=== PATIENT | female | born 1930 | race Caucasian/White ===

== ENCOUNTER 2016-10-14 00:53 | Inpatient (IN) | payer MEDICARE ==
[2016-10-14] MEDS ORDERED: SODIUM CHLORIDE 0.9% 1,000 ML IV STA (01:23)
[2016-10-14] MEDS ORDERED: ONDANSETRON 4 MG/2 ML VIAL IVP STA (01:23)
[2016-10-14] MEDS: HYDROmorphone 1 MG/ML 1 ML SYRINGE IVP STA ×2 (01:49→11:56)
[2016-10-14 01:58] LABS: Appearance,Urine Clear (Clear); Bacteria,Urine Rare /hpf; Bilirubin,Urine Negative (Negative); Glucose,Urine (UA) Negative (Negative); Ketones,Urine Trace (Negative); Leukocyte Esterase,Urine Moderate (Negative); Mucus,Urine Occasional /hpf; Nitrite,Urine Negative (Negative); PH, Urine 5.5 (5.0-8.0); Particle Count 5853; Protein,Urine 1+ (Negative); RBC,Urine 3 /hpf (0-5); Specific Gravity,Urine 1.022 (1.001-1.035); Squamous Epithelial Cell,Urine 3 /hpf (0-4); UA Billing (MACRO vs. MICRO) MICRO; WBC,Urine 23 /hpf (0-5)
[2016-10-14 01:58] LABS: CH 28.7; CHCM 33.3; HCT 44.1 % (34.0-46.0); HDW 2.41; HGB 14.4 gm/dL (11.4-16.0); Large Platelets Flag Slight; MCH 28.3 pg (25.0-35.0); MCHC 32.7 g/dL (31.0-37.0); MCV 86.6 fL (80.0-100.0); Mean Platelet Volume 11.2; RBC 5.09 m/uL (3.80-5.40); WBC 14.7 k/uL (3.8-10.6); WBC (Perox) 15.65
[2016-10-14 03:00] LABS: ALT 43 U/L (9-52); AST 31 U/L (14-36); Alkaline Phosphatase 79 U/L (38-126); Amylase 90 U/L (30-110); Anion Gap 11 mmol/L; Blood Urea Nitrogen 15 mg/dL (7-17); Calcium 9.6 mg/dL (8.4-10.2); Carbon Dioxide 25 mmol/L (22-30); Chloride 103 mmol/L (98-107); Glucose 119 mg/dL (74-99); Non-African American GFR(MDRD) >60 (>60 ml/min/1.73 sqM); Potassium 3.9 mmol/L (3.5-5.1); Sodium 139 mmol/L (137-145); Total Bilirubin 1.4 mg/dL (0.2-1.3); Total Protein 7.4 g/dL (6.3-8.2)
--- NOTE | 2016-10-14 03:05 | XR ---
EXAM: XR Abdomen, 1 View. CLINICAL HISTORY: Reason: abdominal pain TECHNIQUE: Frontal upright view of the abdomen/pelvis. COMPARISON: 11/27/12. FINDINGS: Gastrointestinal tract: There is an air-fluid level in the stomach, and within one or more bowel loops in the left upper abdomen, more likely colonic than small bowel. There is a fair amount of colonic stool present. No grossly dilated loops are seen on this single image. Bones: The bones are osteopenic with degenerative changes and mild dextroscoliosis present. No acute fracture. Soft tissues: There are again postsurgical changes with right upper quadrant clips, and multiple abdominal wall clips/coils overlying the mid abdomen through pelvis. Other findings: No free air is seen. IMPRESSION: Air-fluid levels in stomach and probably within the colon in the upper abdomen, nonspecific, may be on the basis of a ileus. Possibility of low- grade or incomplete obstruction is not entirely excluded. The findings could be correlated clinically to guide further imaging follow-up as clinically indicated.
[2016-10-14] MEDS ORDERED: RX INFO: IV CONTRAST WAS GIVEN 1 EACH MISC MISCELLANE PRN (03:13)
--- NOTE | 2016-10-14 03:13 | ED ---
Abdominal Pain HPI - General Chief Complaint: Abdominal Pain Stated Complaint: lower abd pain Time Seen by Provider: 10/14/16 01:07 Source: patient, RN notes reviewed, old records reviewed Mode of arrival: ambulatory Limitations: no limitations - History of Present Illness Initial Comments: Patient is an 86-year-old female with chief complaint of lower abdominal pain for approximately 2 days. She reports that she's had normal bowel movements today. She states that she does feel nauseated but has not vomited. Patient reports that she does have a history of diverticulosis. She also has a history of incarcerated hernia. She denies any fever or chills, dysuria or hematuria. She states that she feels extremely nauseated and wants to vomit. Patient has a past medical history of hypertension, breast cancer, abdominal hernias. Patient denies any recent fever, chills, shortness of breath, chest pain, back pain, numbness or tingling, dysuria or hematuria, constipation or diarrhea, headaches or visual changes, or any other current symptoms - Related Data Home Medications Medication Instructions Recorded Confirmed Atenolol [Tenormin] 1 tab PO DAILY 10/14/16 10/14/16 Enalapril [Vasotec] 1 tab PO BID 10/14/16 10/14/16 Furosemide [Lasix] 1 tab PO DAILY 10/14/16 10/14/16 Allergies Allergy/AdvReac Type Severity Reaction Status Date / Time No Known Allergies Allergy Verified 10/14/16 00:58 Review of Systems ROS Statement: Those systems with pertinent positive or pertinent negative responses have been documented in the HPI. ROS Other: All systems not noted in ROS Statement are negative. Past Medical History Past Medical History: Cancer, Hyperlipidemia, Hypertension Additional Past Medical History / Comment(s): diverticulosis History of Any Multi-Drug Resistant Organisms: None Reported Additional Past Surgical History / Comment(s): abdomen surgery Past Psychological History: No Psychological Hx Reported Smoking Status: Never smoker Past Alcohol Use History: None Reported Past Drug Use History: None Reported General Exam - General Exam Comments Initial Comments: is a pleasant 86-year-old female. On initial examination she does appear to be in significant discomfort. Patient was vomiting at the time that she was interviewed. Limitations: no limitations General appearance: alert, in no apparent distress Head exam: Present: atraumatic, normocephalic, normal inspection Eye exam: Present: normal appearance, PERRL, EOMI. Absent: scleral icterus, conjunctival injection, periorbital swelling ENT exam: Present: normal exam, mucous membranes moist Neck exam: Present: normal inspection. Absent: tenderness, meningismus, lymphadenopathy Respiratory exam: Present: normal lung sounds bilaterally. Absent: respiratory distress, wheezes, rales, rhonchi, stridor Cardiovascular Exam: Present: regular rate, normal rhythm, normal heart sounds. Absent: systolic murmur, diastolic murmur, rubs, gallop, clicks GI/Abdominal exam: Present: soft, tenderness (patient has right lower quadrant tenderness), normal bowel sounds. Absent: distended, guarding, rebound, rigid Extremities exam: Present: normal inspection, full ROM, normal capillary refill. Absent: tenderness, pedal edema, joint swelling, calf tenderness Back exam: Present: normal inspection Neurological exam: Present: alert, oriented X3, CN II-XII intact Psychiatric exam: Present: normal affect, normal mood Skin exam: Present: warm, dry, intact, normal color. Absent: rash Course Vital Signs 10/14/16 10/14/16 00:58 04:01 Temperature 98.2 F Pulse Rate 89 58 L Respiratory 18 14 Rate Blood Pressure 240/107 147/72 O2 Sat by Pulse 97 96 Oximetry Medical Decision Making - Medical Decision Making atient is an 86-year-old female with chief complaint of lower abdominal pain for approximately 2 days. She reports that she's had normal bowel movements today. She states that she does feel nauseated but has not vomited. Patient's abdominal x-ray did show evidence of a possible small bowel obstruction or ileus. Recommended the CT. Lab work was reviewed patient does have elements of leukocytosis at 14.7 with a left shift of 12.8. Patient will be given a CT abdomen and pelvis. CT abdomen and pelvis shows findings consistent with a small bowel obstruction relation to the right lower quadrant ventral wall spiculated hernia. This does contain a small segment of dilated small bowel loop that can be entrapped within. There is also lateral to previous ventral wall hernia repair that in itself is now much smaller and continuous with a short segment of the cecum within. There is no intra-abdominal or pelvic abscess, free air or pneumatosis seen. Patient was given NG tube and started on Unasyn. Patient reports that she is seen Dr. Jacob and Dr. Fallon for for previous surgical needs. Patient will be admitted to Dr. Fallon. We will have the patient nothing by mouth and placed on D5. - Lab Data Result diagrams: 10/14/16 01:29 10/14/16 01:29 Lab Results 10/14/16 10/14/16 10/14/16 Range/Units 01:29 01:29 01:36 WBC 14.7 H (3.8-10.6) k/uL RBC 5.09 (3.80-5.40) m/uL Hgb 14.4 (11.4-16.0) gm/dL Hct 44.1 (34.0-46.0) % MCV 86.6 (80.0-100.0) fL MCH 28.3 (25.0-35.0) pg MCHC 32.7 (31.0-37.0) g/dL RDW 14.0 (11.5-15.5) % Plt Count (150-450) k/uL Neutrophils % (Manual) 73.0 % Band Neutrophils % 11.0 % Lymphocytes % (Manual) 10.0 % Monocytes % (Manual) 6.0 % Neutrophils # (Manual) 12.3 H (1.3-7.7) k/uL Lymphocytes # (Manual) 1.5 (1.0-4.8) k/uL Monocytes # (Manual) 0.9 (0-1.0) k/uL Nucleated RBCs 0 (0-0) /100 WBC Manual Slide Review Performed Large Platelets Present Poikilocytosis (manual Present Anisocytosis (manual) Present Sodium 139 (137-145) mmol/L Potassium 3.9 (3.5-5.1) mmol/L Chloride 103 (98-107) mmol/L Carbon Dioxide 25 (22-30) mmol/L Anion Gap 11 mmol/L BUN 15 (7-17) mg/dL Creatinine 0.50 L (0.52-1.04) mg/dL Est GFR (MDRD) Af Amer >60 (>60 ml/min/1.73 sqM) Est GFR (MDRD) Non-Af >60 (>60 ml/min/1.73 sqM) Glucose 119 H (74-99) mg/dL Calcium 9.6 (8.4-10.2) mg/dL Total Bilirubin 1.4 H (0.2-1.3) mg/dL AST 31 (14-36) U/L ALT 43 (9-52) U/L Alkaline Phosphatase 79 (38-126) U/L Total Protein 7.4 (6.3-8.2) g/dL Albumin 4.2 (3.5-5.0) g/dL Amylase 90 (30-110) U/L Lipase 282 (23-300) U/L Urine Color Yellow Urine Appearance Clear (Clear) Urine pH 5.5 (5.0-8.0) Ur Specific [place]er 1.022 (1.001-1.035) Urine Protein 1+ H (Negative) Urine Glucose (UA) Negative (Negative) Urine Ketones Trace H (Negative) Urine Blood Negative (Negative) Urine Nitrate Negative (Negative) Urine Bilirubin Negative (Negative) Urine Urobilinogen 2.0 (<2.0) mg/dL Ur Leukocyte Esterase Moderate H (Negative) Urine RBC 3 (0-5) /hpf Urine WBC 23 H (0-5) /hpf Ur Squamous Epith Cells 3 (0-4) /hpf Urine Bacteria Rare H (None) /hpf Hyaline Casts 6 H (0-2) /lpf Urine Mucus Occasional H (None) /hpf - Radiology Data Radiology results: report reviewed Air-fluid levels and stomach and probably within the colon and upper abdomen, nonspecific and may be the basis of ileus. Possible low-grade or incomplete obstruction and not entirely excluded. The findings correlate clinically to get further imaging follow-up is clinically indicated. Images through the lung base it can show perihilar reticular fibrotic changes currently medically with mitral annular and mild aortic root calcification. Suggestions a previous mastectomy. Is a small hiatal hernia. Evidence consistent with a small bowel obstruction in relation to the right lower quadrant ventral wall was spigelian hernia which contains a short segment of dilated small bowel loops entrapped within. Lateral to previous ventral wall hernia that itself is now much smaller and contains a short segment of the cecum within as noted above. No intra-abdominal or pelvic abscess, free air or pneumatosis seen. Disposition Clinical Impression: Spigelian hernia with bowel obstruction Disposition: ADMITTED IP TO THIS [facility] Condition: Stable Time of Disposition: 04:48
[2016-10-14 03:47] LABS: Add Differential Manual Differential
[2016-10-14 03:49] LABS: Nucleated Red Blood Cells 0 /100 WBC (0-0); Total Cells Counted 100
[2016-10-14 03:51] LABS: Large Platelets Present; Manual Review Performed
--- NOTE | 2016-10-14 03:59 | CT ---
EXAM: CT Abdomen and Pelvis With Intravenous Contrast. CLINICAL HISTORY: Reason: pain TECHNIQUE: Axial computed tomography images of the abdomen and pelvis with intravenous contrast. CTDI is 21.20 mGy and DLP is 661.00 mGy-cm COMPARISON: Current [facility]; 11/27/12 CT. FINDINGS: Lower thorax: Imaging through the lung bases again shows peripheral reticular and fibrotic changes, cardiomegaly with mitral annular and mild aortic root calcification, and suggests previous right mastectomy. There is again a small hiatal hernia. ABDOMEN: Liver: Unremarkable. No mass. Gallbladder and bile ducts: Prior cholecystectomy. Stable appearance of the biliary ductal system. Pancreas: Unremarkable. No ductal dilation. No mass. Spleen: Unremarkable. No splenomegaly. Adrenals: Unremarkable. No mass. Kidneys and ureters: Unremarkable. No hydronephrosis. No solid mass. PELVIS: Bladder: Unremarkable. No mass. Reproductive: Again there has been previous hysterectomy. Appendix: The appendix is not visualized. ABDOMEN + PELVIS: Stomach and bowel: Small duodenal diverticulum is again present near the level of the ampulla. There is now small bowel obstruction present, with loops measuring up to 4.6 cm, and related to what appears to be a right lower anterior abdominal wall spigelian hernia within which there is a short segment dilated loop that itself may be incarcerated, and beyond which distal small bowel is completely decompressed. This is nearby although separate from a midline ventral wall hernia that itself is much smaller than on the prior CT, perhaps due to interval repair, and which now actually contains a portion of the cecum within, perhaps postoperative or indicative of the cecum being on a mobile mesentery. The colon is nondilated however. There are again numerous colonic diverticula throughout without evidence of diverticulitis. Peritoneum: Unremarkable. No significant fluid collection. No free air. Lymph nodes: Unremarkable. No enlarged lymph nodes. Vasculature: There are again diffuse atherosclerotic changes throughout. No aortic aneurysm. Bones: The bones are osteopenic with multilevel change changes. Note is made of a minor grade 1 anterolisthesis at L4-5. No acute fracture. IMPRESSION: 1. Findings consistent with small bowel obstruction in relation to right lower quadrant ventral wall spigelian hernia, which contains a short segment dilated small bowel loop that may be entrapped within. 2. This is lateral to previous ventral wall hernia repair that itself is now much smaller and contains a short segment of the cecum within, as noted above. 3. There is no intra-abdominal or pelvic abscess, free air or pneumatosis seen. [employer] 10/14/16 04:02 Call Doctor Regarding Other, called Dr. Mccollum on 10/14 04:02 (-04:00)
[2016-10-14] MEDS ORDERED: AMPICILLIN-SULBACTAM 3 GM in SODIUM CHLORIDE 0.9% 100 ML IVPB STA (04:33)
[2016-10-14] MEDS ORDERED: NALOXONE 0.4 MG/ML 1 ML VIAL IV PRN (04:36)
[2016-10-14] MEDS ORDERED: HYDROmorphone 1 MG/ML 1 ML SYRINGE IV PRN (04:36)
[2016-10-14] MEDS ORDERED: ONDANSETRON 4 MG/2 ML VIAL IVP PRN (04:36)
[2016-10-14] MEDS: DEXTROSE 5%-0.45% NACL 1,000 ML IV SCH ×2 (06:28→13:23)
[2016-10-14] MEDS: PANTOPRAZOLE 40 MG/10 ML VIAL IV SCH (08:26)
--- NOTE | 2016-10-14 09:10 | P.GSHP ---
History of Present Illness H&P Date: 10/14/16 Chief Complaint: Small bowel obstruction Patient was asked to the hospital yesterday evening with abdominal pain. Abdominal pain is diffuse and crampy. This is been occurring on a fairly regular basis recently. When she has these episodes she typically feels nauseous but has no vomiting episodes. No fevers or chills. Bowel function seems to decrease slightly when she has one of these episodes. Her white blood cell count was elevated at 14.7 with bandemia. Her CAT scan shows a incarcerated small bowel loop present within a right sided spigelian hernia. The patient has a midline hernia that was previously repaired and is still persistent but much smaller and does not appear to be causing obstructive symptoms. Patient denies rectal bleeding or melena. She has a history of numerous abdominal hernias. - Review of Systems Comment: The patient denies any acute changes in his vision or hearing, no dysphagia or odynophagia, no chest pain or shortness of breath, no dysuria or hematuria, no headache, no runny nose, no rectal bleeding or melena, no unexplained weight loss Past Medical History Past Medical History: Cancer, Hyperlipidemia, Hypertension Additional Past Medical History / Comment(s): diverticulosis History of Any Multi-Drug Resistant Organisms: None Reported Additional Past Surgical History / Comment(s): abdomen surgery Past Psychological History: No Psychological Hx Reported Smoking Status: Never smoker Past Alcohol Use History: None Reported Past Drug Use History: None Reported Medications and Allergies Home Medications Medication Instructions Recorded Confirmed Type Atenolol [Tenormin] 1 tab PO DAILY 10/14/16 10/14/16 History Enalapril [Vasotec] 1 tab PO BID 10/14/16 10/14/16 History Furosemide [Lasix] 1 tab PO DAILY 10/14/16 10/14/16 History Allergies Allergy/AdvReac Type Severity Reaction Status Date / Time No Known Allergies Allergy Verified 10/14/16 00:58 Surgical - Exam Vital Signs Temp Pulse Resp BP Pulse Ox 98.2 F 89 18 240/107 97 10/14/16 00:58 10/14/16 00:58 10/14/16 00:58 10/14/16 00:58 10/14/16 00:58 Physical exam: General: Well-developed, well-nourished HEENT: Normocephalic, sclerae nonicteric Abdomen: Mild distention, mild diffuse tenderness, fullness in the right midabdomen, upper midline incisional hernia reducible Extremities: No edema Neuro: Alert and oriented Results - Labs 10/14/16 01:29 10/14/16 01:29 Assessment and Plan (1) Spigelian hernia with bowel obstruction Narrative/Plan: Clinical scenario discussed with the patient. Will proceed with operative repair at this time. We will be approaching this through a right-sided paramedian incision and will try to avoid the recurrent midline incisional hernia. The risks of bleeding, infection, recurrence, bowel injury, potential use of mesh, and anesthesia-related complications were discussed. She understands and wishes to proceed. Status: Acute
[2016-10-14 09:23] VITALS: BMI 26.9
[2016-10-14] MEDS ORDERED: ROCURONIUM BROMIDE 10 MG/ML 10 ML VIAL IV ONE (10:12)
[2016-10-14] MEDS ORDERED: SODIUM CHLORIDE 0.9% 50 ML with ceFAZolin 1,000 MG IV ONE ×2 (10:12)
[2016-10-14] MEDS ORDERED: ePHEDrine 50 MG/ML 1 ML AMP ONE (10:12)
[2016-10-14] MEDS ORDERED: LIDOCAINE 1% INJ 10MG/ML (20 ML MDV) ONE (10:12)
[2016-10-14] MEDS ORDERED: ONDANSETRON 4 MG/2 ML VIAL ONE (10:12)
[2016-10-14] MEDS ORDERED: NEOSTIGMINE 1 MG/ML 10 ML VIAL ONE (10:12)
[2016-10-14] MEDS ORDERED: PROPOFOL 10 MG/ML 20 ML VIAL IV ONE (10:12)
[2016-10-14] MEDS ORDERED: SUCCINYLCHOLINE CHLORIDE 100 MG/5 ML SYR IV ONE (10:12)
[2016-10-14] MEDS ORDERED: LACTATED RINGERS 1,000 ML IV ONE (10:12)
[2016-10-14] MEDS ORDERED: fentaNYL (PF) 50 MCG/ML 2 ML AMP ONE (10:12)
[2016-10-14] MEDS ORDERED: GLYCOPYRROLATE 0.2 MG/ML 2 ML VIAL ONE (10:12)
--- NOTE | 2016-10-14 11:31 | P.PCN ---
Date of Procedure: 10/14/16 Procedure(s) Performed: PREOPERATIVE DIAGNOSIS: Incarcerated spigelian hernia POSTOPERATIVE DIAGNOSIS: Same PROCEDURE: Repair with mesh SURGEON: Leeanne EBL: 20 mL ANESTHESIA: General COMPLICATIONS: None OPERATIVE PROCEDURE: Was placed in the operative table in the supine position. The patient was placed under general anesthesia. The abdomen was prepped and draped in usual sterile fashion. A right paramedian incision was made. Dissection through the subcutaneous tissues took place using ultra cautery. The edge of the patient's onlay mesh was noted. An oblique incision was made from superior lateral to inferior medial through the external oblique muscle. The hernia was then identified easily. The bowel was able to be reduced back into the peritoneal cavity fairly easily. The hernia sac was excised. The defect in the internal oblique and transversus abdominis was fairly small measuring only about 2.5 cm. The 4.3 cm ventral ex mesh was placed beneath the fascia and sutured in place using 4 separate 2-0 Nurolon transfacial sutures. The defect was closed transversely using [id number] 0 Ethibond sutures. The external oblique was reapproximated using a running looped PDS. The subcutaneous fat was closed using 3-0 Vicryl sutures and the skin was closed using petros. Sterile dressings were applied DISPOSITION: Stable to recovery room
[2016-10-14] MEDS ORDERED: HYDROmorphone 1 MG/ML 1 ML SYRINGE IVP ONE (11:46)
[2016-10-14] MEDS: HYDROcodone/APAP 5-325MG 1 EACH TAB PO PRN (18:37)
[2016-10-14] MEDS: AMPICILLIN-SULBACTAM 3 GM in SODIUM CHLORIDE 0.9% 100 ML IVPB SCH ×2 (18:37→23:35)
[2016-10-14] MEDS: HEPARIN SODIUM,PORCINE 5,000 UNIT/ML 1 ML VIAL SQ SCH ×2 (21:05→23:36)
[2016-10-14] MEDS: MELATONIN 3 MG TABLET PO SCH (23:35)
[2016-10-15] MEDS: DEXTROSE 5%-0.45% NACL 1,000 ML IV SCH ×2 (02:47→17:54)
[2016-10-15] MEDS: HYDROcodone/APAP 5-325MG 1 EACH TAB PO PRN ×3 (05:42→17:48)
[2016-10-15 07:25] LABS: Basophils % (A) 0 %; CH 28.7; CHCM 32.3; Eosinophils # (A) 0.1 k/uL (0-0.7); Eosinophils % (A) 1 %; HCT 35.5 % (34.0-46.0); HDW 2.31; HGB 11.5 gm/dL (11.4-16.0); Luc # (Auto) 0.22; Luc % (Auto) 3; Lymphocytes # (A) 0.7 k/uL (1.0-4.8); Lymphocytes % (A) 9 %; MCH 28.9 pg (25.0-35.0); MCHC 32.5 g/dL (31.0-37.0); MCV 89.2 fL (80.0-100.0); Mean Platelet Volume 9.5; Monocytes # (A) 0.9 k/uL (0-1.0); Monocytes % (A) 10 %; Neutrophils # (A) 6.4 k/uL (1.3-7.7); Neutrophils % (A) 77 %; RBC 3.98 m/uL (3.80-5.40); RDW 14.1 % (11.5-15.5); WBC 8.3 k/uL (3.8-10.6); WBC (Perox) 8.52
[2016-10-15 07:38] LABS: Anion Gap 7 mmol/L; Blood Urea Nitrogen 6 mg/dL (7-17); Calcium 8.2 mg/dL (8.4-10.2); Carbon Dioxide 28 mmol/L (22-30); Chloride 104 mmol/L (98-107); Glucose 125 mg/dL (74-99); Non-African American GFR(MDRD) >60 (>60 ml/min/1.73 sqM); Potassium 3.1 mmol/L (3.5-5.1); Sodium 139 mmol/L (137-145)
--- NOTE | 2016-10-15 09:36 | CONS ---
DATE OF CONSULTATION: 10/14/2016. REASON FOR CONSULTATION: Medical management requested by Dr. Fallon. CONSULTATION: This is an 86-year-old patient of Dr. Mays, who has a ventral hernia giving abdominal pain on and off for quite some time, presented with acute presentation yesterday with small bowel being involved. Patient was taken down for surgery. Dressing in place. Pain is controlled. The patient's chronic stable medical conditions include hypertension, diverticulosis, osteoarthritis, gastritis. The patient is also on IV Unasyn. Patient's daughter and are at the bedside. REVIEW OF SYSTEMS: CONSTITUTIONAL: Tired. HEENT: Decreased hearing. RESPIRATORY: None. CARDIOVASCULAR: None. GASTROINTESTINAL: As above. MUSCULOSKELETAL: Arthritic pain in the joints. DERMATOLOGIC: None. HEMATOLOGIC: None. LYMPHATIC: None. PSYCHIATRY: None. NEUROLOGIC: None. MUSCULOSKELETAL: Arthritic pain, especially in the hands. PAST MEDICAL HISTORY: Hypertension, diverticulosis, osteoarthritis. PAST SURGICAL HISTORY: Appendectomy, cholecystectomy, hysterectomy, right mastectomy, lesion removed from the calf. SOCIAL HISTORY: No smoking or alcohol. . FAMILY HISTORY: Reviewed; noncontributory to presentation. HOME MEDICATIONS: 1. Lasix 20 mg a day. 2. Vasotec 20 mg daily. 3. Tenormin 25 mg a day. 4. Siler 5, 1 to 2 tablets every 4 hours p.r.n. ALLERGIES: TAPE. PHYSICAL EXAMINATION: VITAL SIGNS: Temperature 97, pulse 56, respirations 16, blood pressure 143/58, pulse ox 94% on room air. GENERAL: Average built, lying in bed, not in distress. HEENT: Pupils equal. Conjunctivae normal. External appearance of nose and ears normal. Decreased hearing. NECK: JVD not raised. Mass not palpable. RESPIRATORY: Effort normal. LUNGS: Fair air entry. CARDIOVASCULAR: First and second sounds normal. No edema. ABDOMEN: Tender soft. Liver and spleen not palpable. LYMPHATIC: No lymph node palpable in neck or axillae. PSYCHIATRY: And oriented x3. Mood and affect normal. NEUROLOGICAL: Pupils equal. Cranial nerves intact. Power and sensation grossly intact. MUSCULOSKELETAL: Severe osteoarthritis, disfiguring, especially in the hands and multiple joints including knees. INVESTIGATIONS: White count 14.7, hemoglobin 14.4. Potassium 3.9. BUN 15, creatinine 0.50. CT scan of the abdomen, small bowel obstruction and the right lower quadrant ventral wall hernia. ASSESSMENT: 1. Acute ventral wall hernia on the right side/Spigelian, status post surgical intervention. 2. Severe osteoarthritis, especially in the hands and other joints, bilaterally. 3. Chronic insomnia, idiopathic. 4. Chronic diverticulosis. 5. Essential hypertension. 6. Hard of hearing, not otherwise specified. PLAN: Patient is getting IV fluids. Empiric antibiotics. Blood pressure is controlled. Venodyne boots for DVT prophylaxis. Subcu heparin. Care was discussed with the patient. Patient's family are at the bedside. We will add melatonin. Thank you, Dr. Fallon.
[2016-10-15] MEDS: AMPICILLIN-SULBACTAM 3 GM in SODIUM CHLORIDE 0.9% 100 ML IVPB SCH ×2 (11:00→17:53)
[2016-10-15] MEDS: PANTOPRAZOLE 40 MG/10 ML VIAL IV SCH (11:00)
[2016-10-15] MEDS: HEPARIN SODIUM,PORCINE 5,000 UNIT/ML 1 ML VIAL SQ SCH ×2 (11:00→17:53)
[2016-10-15] MEDS ORDERED: POTASSIUM CHLORIDE ER 20 MEQ TAB.ER PO STA (12:20)
--- NOTE | 2016-10-15 15:38 | P.PN ---
Subjective Principal diagnosis: small bowel obstruction patient doing well today. She's tolerating clear liquid diet. Small amount of flatus. Pain is minimal. Objective - Vital Signs Vital signs: Vital Signs Temp 99.2 F 10/15/16 08:40 Pulse 73 10/15/16 08:40 Resp 16 10/15/16 08:40 BP 148/68 10/15/16 08:40 Pulse Ox 96 10/15/16 08:40 Intake & Output 10/14/16 10/15/16 10/15/16 18:59 06:59 18:59 Intake Total 1150 Output Total 20 Balance 1130 Weight 66.678 kg Intake: IV 1150 Dextrose 5%-0.45% NaCl 1, 250 000 ml @ 100 mls/hr IV . Q10H [facility] Rx#:[id number] Output: Estimated Blood Loss 20 Other: Voiding Method Toilet Toilet # Voids 1 1 2 - Exam abdomen: Soft, mild tenderness at the incision site, dressing intact, slight erythema lateral to the longitudinal incision site - Labs CBC & Chem 7: 10/15/16 06:40 10/15/16 06:40 Labs: Abnormal Lab Results - Last 24 Hours (Table) 10/15/16 10/15/16 Range/Units 06:40 06:40 Plt Count 144 L (150-450) k/uL Lymphocytes # 0.7 L (1.0-4.8) k/uL Potassium 3.1 L (3.5-5.1) mmol/L BUN 6 L (7-17) mg/dL Creatinine 0.51 L (0.52-1.04) mg/dL Glucose 125 H (74-99) mg/dL Calcium 8.2 L (8.4-10.2) mg/dL Assessment and Plan (1) Spigelian hernia with bowel obstruction Narrative/Plan: Will advance diet. Monitor the patient's incision site. Increase activity. Status: Acute
[2016-10-15] MEDS: D5-0.45% NACL WITH KCL 20MEQ/L 1,000 ML IV SCH (17:48)
[2016-10-15] MEDS: MELATONIN 3 MG TABLET PO SCH (20:17)
[2016-10-16] MEDS: AMPICILLIN-SULBACTAM 3 GM in SODIUM CHLORIDE 0.9% 100 ML IVPB SCH ×3 (00:04→16:07)
[2016-10-16] MEDS: HEPARIN SODIUM,PORCINE 5,000 UNIT/ML 1 ML VIAL SQ SCH ×3 (00:04→16:08)
[2016-10-16] MEDS: HYDROcodone/APAP 5-325MG 1 EACH TAB PO PRN (00:21)
[2016-10-16] MEDS: ATENOLOL 25 MG TAB PO SCH ×2 (02:30→09:18)
[2016-10-16] MEDS: LISINOPRIL 20 MG TAB PO SCH ×2 (02:30→09:18)
[2016-10-16] MEDS: FUROSEMIDE 20 MG TAB PO SCH (09:18)
[2016-10-16] MEDS: PANTOPRAZOLE 40 MG/10 ML VIAL IV SCH (09:19)
--- NOTE | 2016-10-16 09:58 | PN ---
DATE OF SERVICE: 10/15/2016 PRESENTING COMPLAINT: Abdominal surgery. INTERVAL HISTORY: This is a patient who underwent ventral hernia repair. Patient is doing better. Diet is being advanced per Surgery, has been out of bed. and daughter at the bedside. Review of systems done for constitutional, cardiovascular, GI, pulmonary; relevant findings as above. Current medications are reviewed. On examination, temperature 99.2, pulse 73, respiratory rate 16, blood pressure 148/68, pulse ox 96% on room air. GENERAL APPEARANCE: Sitting up, comfortable. EYES: Pupils equal. Conjunctivae normal. NECK: JVD not raised. Mass not palpable. RESPIRATORY: Effort normal. Lungs are clear. CARDIOVASCULAR: First and second sounds normal. No edema. ABDOMEN: Soft, nontender. Liver and spleen not palpable. PSYCHIATRY: Alert and oriented x3. Mood and affect normal. ABDOMEN: Soft, minimal tenderness. Liver and spleen not palpable. INVESTIGATIONS: White count 8.3, hemoglobin 11.5. ASSESSMENT: 1. Acute ventral wall hernia on the right side, Spigelian, status post surgical intervention for obstruction. 2. Severe osteoarthritis especially in the hands and other joints, bilaterally. 3. Chronic insomnia, idiopathic. 4. Chronic diverticulosis. 5. Essential hypertension. 6. Hard of hearing, not otherwise specified. PLAN: Continue current medication and treatment plan. Patient clinically doing better. Diet is to be advanced per Dr. Fallon.
[2016-10-16] MEDS: D5-0.45% NACL WITH KCL 20MEQ/L 1,000 ML IV SCH (16:08)
--- NOTE | 2016-10-16 16:52 | P.PN ---
Subjective Principal diagnosis: small bowel obstruction Patient is had 2 small bowel movements. She is tolerating her full liquid diet. No lab work from today. No nausea or vomiting. Objective - Vital Signs Vital signs: Vital Signs Temp 98.7 F 10/16/16 15:00 Pulse 70 10/16/16 15:00 Resp 17 10/16/16 15:00 BP 187/88 10/16/16 15:00 Pulse Ox 97 10/16/16 15:00 Intake & Output 10/15/16 10/16/16 10/16/16 18:59 06:59 18:59 Other: Voiding Method Toilet Toilet # Voids 2 1 3 - Exam Abdomen: Soft, minimal distention, incision without drainage, slight erythema laterally - Labs CBC & Chem 7: 10/15/16 06:40 10/16/16 06:26 Assessment and Plan (1) Spigelian hernia with bowel obstruction Narrative/Plan: Continue antibiotics. Continue Adames liquid diet. Increase activity level. Repeat labs tomorrow. Status: Acute
[2016-10-16] MEDS: MELATONIN 3 MG TABLET PO SCH (20:44)
[2016-10-17] MEDS: AMPICILLIN-SULBACTAM 3 GM in SODIUM CHLORIDE 0.9% 100 ML IVPB SCH ×4 (00:20→21:28)
[2016-10-17] MEDS: HEPARIN SODIUM,PORCINE 5,000 UNIT/ML 1 ML VIAL SQ SCH ×3 (00:20→18:01)
[2016-10-17] MEDS: HYDROcodone/APAP 5-325MG 1 EACH TAB PO PRN ×2 (04:44→21:37)
--- NOTE | 2016-10-17 06:40 | PN ---
DATE OF SERVICE: 10/16/2016 PRESENTING COMPLAINT: Abdominal surgery. INTERVAL HISTORY: Patient is status post ventral hernia repair. Continues to do better. Diet has been advanced. Did pass flatus. Had a bowel movement. Family at the bedside. Walking better. Review of systems done for constitutional, cardiovascular, GI, pulmonary; relevant findings as above. Current medications are reviewed. On examination, temperature 98.7, pulse 70, respirations 17, blood pressure 187/88 prior to that 136/76. GENERAL APPEARANCE: Sitting up, comfortable. EYES: Pupils equal. Conjunctivae normal. NECK: JVD not raised. Mass not palpable. RESPIRATORY: Effort normal. Lungs are clear. CARDIOVASCULAR: First and second sounds normal. No edema. ABDOMEN: Soft, minimal tenderness. PSYCH: Alert and oriented x3. Mood and affect normal. INVESTIGATIONS: No blood work from today. ASSESSMENT: 1. 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 2. Severe osteoarthritis especially hands and other joints. 3. Chronic insomnia, idiopathic. 4. Chronic diverticulosis. 5. Essential hypertension. 6. Hard of hearing, not otherwise specified. PLAN: Overall doing better. Continue to advance diet. Will follow. Thank you, Dr. Fallon.
[2016-10-17 07:32] LABS: Basophils % (A) 0 %; CH 28.5; CHCM 32.1; Eosinophils # (A) 0.3 k/uL (0-0.7); Eosinophils % (A) 4 %; HCT 35.7 % (34.0-46.0); HDW 2.27; HGB 11.4 gm/dL (11.4-16.0); Luc # (Auto) 0.17; Luc % (Auto) 3; Lymphocytes % (A) 16 %; MCH 28.5 pg (25.0-35.0); MCHC 31.9 g/dL (31.0-37.0); MCV 89.4 fL (80.0-100.0); Mean Platelet Volume 7.4; Monocytes # (A) 0.6 k/uL (0-1.0); Monocytes % (A) 9 %; Neutrophils # (A) 4.2 k/uL (1.3-7.7); Neutrophils % (A) 67 %; WBC 6.3 k/uL (3.8-10.6); WBC (Perox) 6.65
[2016-10-17 07:54] LABS: Anion Gap 6 mmol/L; Blood Urea Nitrogen 6 mg/dL (7-17); Calcium 8.2 mg/dL (8.4-10.2); Carbon Dioxide 30 mmol/L (22-30); Chloride 105 mmol/L (98-107); Glucose 98 mg/dL (74-99); Non-African American GFR(MDRD) >60 (>60 ml/min/1.73 sqM); Potassium 3.6 mmol/L (3.5-5.1); Sodium 141 mmol/L (137-145)
[2016-10-17] MEDS: PANTOPRAZOLE 40 MG/10 ML VIAL IV SCH (09:16)
[2016-10-17] MEDS: LISINOPRIL 20 MG TAB PO SCH (09:16)
[2016-10-17] MEDS: FUROSEMIDE 20 MG TAB PO SCH (09:16)
[2016-10-17] MEDS: ATENOLOL 25 MG TAB PO SCH (09:16)
--- NOTE | 2016-10-17 12:10 | P.PN ---
Subjective Principal diagnosis: small bowel obstruction Patient doing better today. No nausea or vomiting. Tolerating diet. Positive flatus. Objective - Vital Signs Vital signs: Vital Signs Temp 98.1 F 10/17/16 06:24 Pulse 57 L 10/17/16 06:24 Resp 18 10/17/16 06:24 BP 168/84 10/17/16 06:24 Pulse Ox 92 L 10/17/16 06:24 Intake & Output 10/16/16 10/17/16 10/17/16 18:59 06:59 18:59 Intake Total 180 Balance 180 Intake: Oral 180 Other: Voiding Method Toilet # Voids 3 2 - Exam Abdomen: Soft, minimal tenderness, area of erythema much improved - Labs CBC & Chem 7: 10/17/16 06:43 10/17/16 06:43 Labs: Abnormal Lab Results - Last 24 Hours (Table) 10/17/16 Range/Units 06:43 BUN 6 L (7-17) mg/dL Creatinine 0.51 L (0.52-1.04) mg/dL Calcium 8.2 L (8.4-10.2) mg/dL Assessment and Plan (1) Spigelian hernia with bowel obstruction Narrative/Plan: Continue advancing diet. Anticipate discharge tomorrow. Status: Acute
[2016-10-17 14:08] VITALS: RESP 16
[2016-10-17] MEDS: MELATONIN 3 MG TABLET PO SCH (21:27)
[2016-10-17] MEDS: D5-0.45% NACL WITH KCL 20MEQ/L 1,000 ML IV SCH (21:28)
[2016-10-18] MEDS: HEPARIN SODIUM,PORCINE 5,000 UNIT/ML 1 ML VIAL SQ SCH ×2 (01:01→08:40)
--- NOTE | 2016-10-18 05:21 | PN ---
DATE OF SERVICE: 10/17/2016 PRESENTING COMPLAINT: Abdominal surgery. INTERVAL HISTORY: The patient was seen by me this morning, status post ventral hernia repair. Continues to improve. Tolerating a diet. Family is with the patient, ambulating. Review of systems done for constitutional, cardiovascular, GI, pulmonary; relevant findings as above. Current medications are reviewed that include IV Unasyn, IV fluids. On examination, temperature 98.1, pulse 57, respiration 18, blood pressure 168/84, pulse ox 92% on room air. GENERAL APPEARANCE: Sitting up, comfortable. EYES: Pupils equal. Conjunctivae normal. NECK: JVD not raised. Mass not palpable. RESPIRATORY: Effort normal. Lungs are clear. CARDIOVASCULAR: First and second sounds normal. No edema. ABDOMEN: Soft, some tenderness Bowel sounds are pleasant. PSYCHIATRY: Alert and oriented x3. Mood and affect normal. INVESTIGATIONS: White count 6.3. Potassium 3.6. BUN and creatinine is normal. ASSESSMENT: 1. Acute ventral hernia on the right side/Spigelian repair, status post surgical intervention for obstruction with small bowel. 2. Severe osteoarthritis especially hands and other joints. 3. Chronic insomnia, idiopathic. 4. Chronic diverticulosis. 5. Essential hypertension. 6. Hard of hearing, not otherwise specified. PLAN: Patient continues to improve. Encouraged to ambulate. Diet per Dr. Zhou. Will follow.
[2016-10-18] MEDS: HYDROcodone/APAP 5-325MG 1 EACH TAB PO PRN ×2 (06:12→14:38)
[2016-10-18 08:39] VITALS: BP 155/80; PULSE 73; TEMP 97.1
[2016-10-18] MEDS: LISINOPRIL 20 MG TAB PO SCH (08:39)
[2016-10-18] MEDS: FUROSEMIDE 20 MG TAB PO SCH (08:39)
[2016-10-18] MEDS: ATENOLOL 25 MG TAB PO SCH (08:39)
[2016-10-18] MEDS: PANTOPRAZOLE 40 MG/10 ML VIAL IV SCH (08:40)
[2016-10-18] MEDS: AMPICILLIN-SULBACTAM 3 GM in SODIUM CHLORIDE 0.9% 100 ML IVPB SCH (08:44)
--- NOTE | 2016-10-18 13:30 | P.DS ---
Providers Date of admission: 10/14/16 04:47 Expected date of discharge: 10/18/16 Attending physician: Sukh Fallon Consults: 10/14/16 11:25 Consult Physician Routine Consulting Provider: Dontae Menezes Consult Reason/Comments: Medical management Do you want consulting provider notified?: Yes Primary care physician: Dereck Mays - Discharge Diagnosis(es) (1) Spigelian hernia with bowel obstruction Patient was admitted through the emergency department with an incarcerated spigelian hernia. She underwent operative repair. She's done well postoperatively. She is now tolerating a regular diet. She is ambulating without difficulty. Her incision is healing appropriately. She is being discharged today with plans for outpatient follow-up in 1 week. Current Visit: Yes Status: Acute Patient Condition at Discharge: Stable Plan - Discharge Summary New Discharge Prescriptions: Hydrocodone/Acetaminophen [[place] 5-325] 1 - 2 each PO Q4HR PRN #30 tab PRN Reason: pain Discharge Medication List Atenolol [Tenormin] 25 mg PO DAILY 10/14/16 [History] Enalapril [Vasotec] 20 mg PO DAILY 10/14/16 [History] Furosemide [Lasix] 20 mg PO DAILY 10/14/16 [History] Hydrocodone/Acetaminophen [[place] 5-325] 1 - 2 each PO Q4HR PRN #30 tab 10/14/16 [Rx] Follow up Appointment(s)/Referral(s): Sukh Fallon MD [Medical Doctor] - 10/25/16 10:30 am Dereck Mays MD [Primary Care Provider] - 10/22/16 2:15 pm
--- NOTE | 2016-10-19 20:39 | PN ---
DATE OF SERVICE: 10/18/2016 PRESENTING COMPLAINT: Abdominal surgery. INTERVAL HISTORY: Patient was seen by me yesterday on 10/18/16, status post ventral hernia repair. Continues to do better. Pain is better controlled. Up and about. Tolerating a diet. Also had a bowel movement. Family is at the bedside. Review of systems is done for constitutional, cardiovascular, GI, pulmonary; relevant findings as above. Current medications are reviewed. On examination, temperature 97.1, pulse 73, respiration 16, blood pressure 155/80, pulse ox 98% on room air. GENERAL APPEARANCE: Sitting up, comfortable. EYES: Pupils equal. Conjunctivae normal. NECK: JVD not raised. Mass not palpable. RESPIRATORY: Effort normal. Lungs are clear. CARDIOVASCULAR: First and second sounds normal. No edema. ABDOMEN: Soft. Minimal tenderness. Bowel sounds present. PSYCHIATRY: Alert and oriented x3. Mood and affect normal. INVESTIGATIONS: White count 6.3. ASSESSMENT: 1. Acute ventral hernia on the right side, spigelian, repaired, status post surgical intervention for obstruction with small bowel. Doing well. 2. Severe osteoarthritis, especially of the hands and other joints. 3. Chronic insomnia, idiopathic. 4. Chronic diverticulosis. 5. Essential hypertension. 6. Hard of hearing, advanced, not otherwise specified. PLAN: Patient is doing well. If discharged, should follow up with her family doctor.
== END 2016-10-18 15:45 | disposition home or self-care (01) | DRG 355 ==
LOC: EC 00:53 → 3SUR 04:47
PROVIDERS: ADMIT Surgery; ATTEND Surgery
PROC: 0WUF0JZ Supplement Abdominal Wall with Synthetic Substitute, Open Approach (ICD-10-PCS; principal; 2016-10-14 09:28)
DX: K43.6 Other and unspecified ventral hernia with obstruction, without gangrene (principal); I10 Essential (primary) hypertension; E78.5 Hyperlipidemia, unspecified; F51.04 Psychophysiologic insomnia; H91.90 Unspecified hearing loss, unspecified ear; K29.70 Gastritis, unspecified, without bleeding; K57.90 Diverticulosis of intestine, part unspecified, without perforation or abscess without bleeding; M19.90 Unspecified osteoarthritis, unspecified site; Z79.899 Other long term (current) drug therapy; Z85.3 Personal history of malignant neoplasm of breast
CPT/HCPCS: 36415; 43753; 74000; 74177; 80048; 80053; 81001; 82150; 83690; 84132; 85025; 88302; 96361; 96375; 96376; 99285

== ENCOUNTER 2017-10-28 00:12 | Inpatient (IN) | payer MEDICARE ==
[2017-10-28] MEDS ORDERED: SODIUM CHLORIDE 0.9% 1,000 ML IV ONE (00:37)
[2017-10-28] MEDS: SODIUM CHLORIDE 0.9% 1,000 ML IV SCH ×2 (00:41→11:54)
--- NOTE | 2017-10-28 01:00 | XR ---
EXAMINATION TYPE: XR tibia fibula LT DATE OF EXAM: 10/28/2017 COMPARISON: NONE HISTORY: Cellulitis and pain TECHNIQUE: 2 views FINDINGS: There is subcutaneous edema around the lower leg. There is narrowing of medial joint space with spurring of medial femoral and tibial condyles. There is narrowing of ankle joint space. I see n o fracture. I see no focal bone destruction. IMPRESSION: Osteoarthritis in the knee joint and ankle joint. Subcutaneous edema. No fracture.
[2017-10-28 01:01] LABS: Basophils % (A) 0 %; Eosinophils # (A) 0.3 k/uL (0-0.7); Eosinophils % (A) 2 %; HCT 36.1 % (34.0-46.0); HGB 11.5 gm/dL (11.4-16.0); Lymphocytes # (A) 1.4 k/uL (1.0-4.8); Lymphocytes % (A) 12 %; MCH 27.1 pg (25.0-35.0); MCHC 31.8 g/dL (31.0-37.0); MCV 85.1 fL (80.0-100.0); Mean Platelet Volume 10.3; Monocytes # (A) 1.1 k/uL (0-1.0); Monocytes % (A) 9 %; Neutrophils # (A) 8.6 k/uL (1.3-7.7); Neutrophils % (A) 74 %; Platelet Count 133 k/uL (150-450); RBC 4.24 m/uL (3.80-5.40); RDW 13.9 % (11.5-15.5); WBC 11.6 k/uL (3.8-10.6)
[2017-10-28 01:10] LABS: Partial Thromboplastin Time 25.5 sec (22.0-30.0); Prothrombin Time 9.9 sec (9.0-12.0)
[2017-10-28 01:30] LABS: Albumin 3.3 g/dL (3.5-5.0); Calcium 9.2 mg/dL (8.4-10.2); Potassium 4.8 mmol/L (3.5-5.1); Total Bilirubin 0.5 mg/dL (0.2-1.3); Total Protein 6.6 g/dL (6.3-8.2)
[2017-10-28 02:19] LABS: Appearance,Urine Clear (Clear); Bilirubin,Urine Negative (Negative); Blood,Urine Negative (Negative); Color,Urine Light Yellow; Glucose,Urine (UA) Negative (Negative); Ketones,Urine Negative (Negative); Leukocyte Esterase,Urine Negative (Negative); Nitrite,Urine Negative (Negative); Protein,Urine Negative (Negative); Specific Gravity,Urine 1.003 (1.001-1.035); Urobilinogen,Urine <2.0 mg/dL (<2.0)
--- NOTE | 2017-10-28 02:21 | US ---
EXAMINATION TYPE: US venous doppler duplex LE RT EXAMINATION TYPE: US venous doppler duplex LE LT DATE OF EXAM: 10/28/2017 1:50 AM COMPARISON: NONE CLINICAL HISTORY: Pain from cellulitis. SIDE PERFORMED: Left TECHNIQUE: The lower extremity deep venous system is examined utilizing real time linear array sonog meghan with graded compression, doppler sonography and color-flow sonography. VESSELS IMAGED: External Iliac Vein (EIV) Common Femoral Vein Deep Femoral Vein Greater Saphenous Vein * Femoral Vein Popliteal Vein Small Saphenous Vein * Proximal Calf Veins (* superficial vessels) Left Leg: Negative for DVT Incidental lymph nodes seen largest in left groin measured (3.9 x 0.7 x 2.7 cm). IMPRESSION: Grayscale, color doppler, spectral doppler imaging performed of the deep veins of the lo wer extremities. There is normal flow, compressibility, vascular waveforms. DATE OF EXAM: 10/28/2017 1:50 AM COMPARISON: NONE CLINICAL HISTORY: Pain. SIDE PERFORMED: TECHNIQUE: The lower extremity deep venous system is examined utilizing real time linear array sonog meghan with graded compression, doppler sonography and color-flow sonography. VESSELS IMAGED: External Iliac Vein (EIV) Common Femoral Vein Deep Femoral Vein Greater Saphenous Vein * Femoral Vein Popliteal Vein Small Saphenous Vein * Proximal Calf Veins (* superficial vessels) Left Leg: IMPRESSION: Normal exam. No evidence of deep venous thrombosis in left leg.
[2017-10-28] MEDS ORDERED: IBUPROFEN 400 MG TAB PO PRN (02:45)
[2017-10-28] MEDS ORDERED: ALPRAZolam 0.25 MG TAB PO PRN (02:45)
[2017-10-28] MEDS ORDERED: LORazepam 2 MG/ML INJ IV PRN (02:45)
[2017-10-28] MEDS ORDERED: ONDANSETRON 4 MG/2 ML VIAL IVP PRN (02:45)
[2017-10-28] MEDS ORDERED: NALOXONE 0.4 MG/ML 1 ML VIAL IV PRN ×2 (02:45→15:20)
[2017-10-28] MEDS ORDERED: HYDROcodone/APAP 5-325MG 1 EACH TAB PO PRN (02:45)
[2017-10-28] MEDS ORDERED: MORPHINE SULFATE/PF 10MG/10ML VL IV PRN (02:45)
--- NOTE | 2017-10-28 02:45 | ED ---
Skin/Abscess/FB HPI - General Source: patient, family, RN notes reviewed, old records reviewed Mode of arrival: ambulatory Limitations: no limitations <Myriam Francis - Last Filed: 10/28/17 03:10> <Juarez Buckley - Last Filed: 10/29/17 08:42> - General Chief complaint: Skin/Abscess/Foreign Body Stated complaint: Cellulitis left leg Time Seen by Provider: 10/28/17 00:25 - History of Present Illness Initial comments: This is an 87-year-old female presents emergency Department chief complaint of left lower extremity swelling. She reports that she started noticed swelling last Saturday. She waited until this previous Saturday to see her primary care provider. She states that she was started on Bactrim for cellulitis. She states that over the past 2 days her leg swelling is become increasingly worse. She isn't taking the antibiotics as prescribed. She states she has had no history of blood clots. Denies any pain or swelling of the right leg. She states that she has no chest pain shortness of breath, nausea or vomiting. Denies any fevers but felt chilled. She also states that she is having some dental procedures done. (Myriam Francis) - Related Data Home Medications Medication Instructions Recorded Confirmed Atenolol [Tenormin] 25 mg PO DAILY 10/14/16 10/28/17 Enalapril [Vasotec] 20 mg PO DAILY 10/14/16 10/28/17 Furosemide [Lasix] 20 mg PO DAILY 10/14/16 10/28/17 Hydrocodone/Acetaminophen [[place] 1 - 2 tab PO Q4HR PRN 10/28/17 10/28/17 5-325] Sulfamethoxazole/Trimethoprim 1 tab PO BID 10/28/17 10/28/17 [Bactrim DS 800-160 mg] Allergies Allergy/AdvReac Type Severity Reaction Status Date / Time adhesive tape Allergy Rash/Hives Verified 10/28/17 07:40 Review of Systems ROS Other: All systems not noted in ROS Statement are negative. <Myriam Francis - Last Filed: 10/28/17 03:10> ROS Other: All systems not noted in ROS Statement are negative. <Juarez Buckley - Last Filed: 10/29/17 08:42> ROS Statement: Those systems with pertinent positive or pertinent negative responses have been documented in the HPI. Past Medical History Past Medical History: Cancer, Hyperlipidemia, Hypertension Additional Past Medical History / Comment(s): diverticulosis History of Any Multi-Drug Resistant Organisms: None Reported Past Surgical History: Appendectomy, Cholecystectomy, Hernia Repair, Hysterectomy Additional Past Surgical History / Comment(s): abdomen surgery, right masectomy , lesion removed from calf Past Psychological History: No Psychological Hx Reported Smoking Status: Never smoker Past Alcohol Use History: None Reported Past Drug Use History: None Reported <Myriam Francis - Last Filed: 10/28/17 03:10> General Exam Limitations: no limitations General appearance: alert, in no apparent distress Head exam: Present: atraumatic, normocephalic, normal inspection Eye exam: Present: normal appearance, PERRL, EOMI. Absent: scleral icterus, conjunctival injection, periorbital swelling ENT exam: Present: normal exam, mucous membranes moist, other (Patient has healing blisters over her lips.). Absent: normal oropharynx (Poor dentition) Neck exam: Present: normal inspection. Absent: tenderness, meningismus, lymphadenopathy Respiratory exam: Present: normal lung sounds bilaterally. Absent: respiratory distress, wheezes, rales, rhonchi, stridor Cardiovascular Exam: Present: regular rate, normal rhythm, normal heart sounds. Absent: systolic murmur, diastolic murmur, rubs, gallop, clicks GI/Abdominal exam: Present: soft, normal bowel sounds. Absent: distended, tenderness, guarding, rebound, rigid Extremities exam: Present: other (Patient has significant edema and erythema extending from the left foot to the mid lower leg. Patient has 4+ pitting edema. Patient has normal pulses. Range of motion not is normal. Right lower extremity appears within normal limits.) Back exam: Present: normal inspection Neurological exam: Present: alert, oriented X3, CN II-XII intact Psychiatric exam: Present: normal affect, normal mood Skin exam: Present: warm, dry, intact, normal color. Absent: rash <Myriam Francis - Last Filed: 10/28/17 03:10> <Juarez Buckley - Last Filed: 10/29/17 08:42> - General Exam Comments Initial Comments: Physical is an 87-year-old female. She is hard of hearing. No acute distress. (Myriam Francis) Vital Signs 10/28/17 10/28/17 10/28/17 00:14 02:10 03:00 Temperature 96.8 F L 96.9 F L Pulse Rate 50 L 56 L 52 L Respiratory 18 18 15 Rate Blood Pressure 168/72 180/83 117/57 O2 Sat by Pulse 98 96 97 Oximetry Medical Decision Making - Lab Data Result diagrams: 10/28/17 00:25 10/28/17 00:25 - Radiology Data Radiology results: report reviewed <Myriam Francis - Last Filed: 10/28/17 03:10> - Lab Data Result diagrams: 10/29/17 07:50 10/29/17 07:50 <Juarez Buckley - Last Filed: 10/29/17 08:42> - Medical Decision Making This patient is an 79-year-old female presents with worsening flank to her left lower extremity. She states that she noticed the swelling approximately 1-2 weeks ago. She saw her primary care provider on Saturday and was started on Bactrim for cellulitis. Since that time her leg has become increasingly swollen. She is 4+ pitting edema. Patient has normal pulses, normal range of motion. No history of resistant infections that she is aware of. Patient has significant Erythema extends from the foot to the mid lower leg. She does have some weeping noted to the leg as well. Right lower extremity appears within normal limits. Patient's x-ray of the tib-fib was reviewed and show soft tissue edema. No fracture noted. Doppler ultrasound was obtained. Negative for DVT. White blood cell count is mildly elevated at 11. We'll start the patient on Zosyn to cover for cellulitis. Blood cultures pending. She'll be admitted at this time for failure of outpatient treatment, left leg cellulitis and edema. Edema also could be related to poor nutrition status with a low albumin of 3.3. (Myriam Francis) I saw this patient in conjunction with the physician assistant chief nursing officer. I performed independent history and physical exam. Agree with case management. (Juarez Buckley) - Lab Data Lab Results 10/28/17 10/28/17 10/28/17 Range/Units 00:25 00:25 00:25 WBC 11.6 H (3.8-10.6) k/uL RBC 4.24 (3.80-5.40) m/uL Hgb 11.5 (11.4-16.0) gm/dL Hct 36.1 (34.0-46.0) % MCV 85.1 (80.0-100.0) fL MCH 27.1 (25.0-35.0) pg MCHC 31.8 (31.0-37.0) g/dL RDW 13.9 (11.5-15.5) % Plt Count 133 L (150-450) k/uL Neutrophils % 74 % Lymphocytes % 12 % Monocytes % 9 % Eosinophils % 2 % Basophils % 0 % Neutrophils # 8.6 H (1.3-7.7) k/uL Lymphocytes # 1.4 (1.0-4.8) k/uL Monocytes # 1.1 H (0-1.0) k/uL Eosinophils # 0.3 (0-0.7) k/uL Basophils # 0.0 (0-0.2) k/uL PT (9.0-12.0) sec INR (<1.2) APTT (22.0-30.0) sec Sodium 134 L (137-145) mmol/L Potassium 4.8 (3.5-5.1) mmol/L Chloride 100 (98-107) mmol/L Carbon Dioxide 23 (22-30) mmol/L Anion Gap 11 mmol/L BUN 22 H (7-17) mg/dL Creatinine 1.00 (0.52-1.04) mg/dL Est GFR (CKD-EPI)AfAm 59 (>60 ml/min/1.73 sqM) Est GFR (CKD-EPI)NonAf 51 (>60 ml/min/1.73 sqM) Glucose 90 (74-99) mg/dL Plasma Lactic Acid Moe 0.9 (0.7-2.0) mmol/L Calcium 9.2 (8.4-10.2) mg/dL Total Bilirubin 0.5 (0.2-1.3) mg/dL AST 24 (14-36) U/L ALT 20 (9-52) U/L Alkaline Phosphatase 103 (38-126) U/L Total Protein 6.6 (6.3-8.2) g/dL Albumin 3.3 L (3.5-5.0) g/dL Urine Color Urine Appearance (Clear) Urine pH (5.0-8.0) Ur Specific [place] (1.001-1.035) Urine Protein (Negative) Urine Glucose (UA) (Negative) Urine Ketones (Negative) Urine Blood (Negative) Urine Nitrite (Negative) Urine Bilirubin (Negative) Urine Urobilinogen (<2.0) mg/dL Ur Leukocyte Esterase (Negative) 10/28/17 10/28/17 Range/Units 00:25 02:04 WBC (3.8-10.6) k/uL RBC (3.80-5.40) m/uL Hgb (11.4-16.0) gm/dL Hct (34.0-46.0) % MCV (80.0-100.0) fL MCH (25.0-35.0) pg MCHC (31.0-37.0) g/dL RDW (11.5-15.5) % Plt Count (150-450) k/uL Neutrophils % % Lymphocytes % % Monocytes % % Eosinophils % % Basophils % % Neutrophils # (1.3-7.7) k/uL Lymphocytes # (1.0-4.8) k/uL Monocytes # (0-1.0) k/uL Eosinophils # (0-0.7) k/uL Basophils # (0-0.2) k/uL PT 9.9 (9.0-12.0) sec INR 1.0 (<1.2) APTT 25.5 (22.0-30.0) sec Sodium (137-145) mmol/L Potassium (3.5-5.1) mmol/L Chloride (98-107) mmol/L Carbon Dioxide (22-30) mmol/L Anion Gap mmol/L BUN (7-17) mg/dL Creatinine (0.52-1.04) mg/dL Est GFR (CKD-EPI)AfAm (>60 ml/min/1.73 sqM) Est GFR (CKD-EPI)NonAf (>60 ml/min/1.73 sqM) Glucose (74-99) mg/dL Plasma Lactic Acid Moe (0.7-2.0) mmol/L Calcium (8.4-10.2) mg/dL Total Bilirubin (0.2-1.3) mg/dL AST (14-36) U/L ALT (9-52) U/L Alkaline Phosphatase (38-126) U/L Total Protein (6.3-8.2) g/dL Albumin (3.5-5.0) g/dL Urine Color Light Yellow Urine Appearance Clear (Clear) Urine pH 5.0 (5.0-8.0) Ur Specific [place] 1.003 (1.001-1.035) Urine Protein Negative (Negative) Urine Glucose (UA) Negative (Negative) Urine Ketones Negative (Negative) Urine Blood Negative (Negative) Urine Nitrite Negative (Negative) Urine Bilirubin Negative (Negative) Urine Urobilinogen <2.0 (<2.0) mg/dL Ur Leukocyte Esterase Negative (Negative) - Radiology Data Doppler ultrasound is negative for DVT. Evidence of artheritis with the knee joint nad ankle joint. He does have cutaneous edema. No fractures noted. (Myriam Francis) Disposition Time of Disposition: 02:45 <Myriam Francis - Last Filed: 10/28/17 03:10> <Juarez Buckley - Last Filed: 10/29/17 08:42> Clinical Impression: Leg edema, left, Left leg cellulitis, Failure of outpatient treatment Disposition: ADMITTED IP TO THIS HOSP Condition: Stable
[2017-10-28] MEDS ORDERED: PIPERACILLIN-TAZOBACTAM 3.375 GM in DEXTROSE/WATER 1 50ML.BAG IVPB STA (02:52)
[2017-10-28 05:08] VITALS: BMI 27.4
[2017-10-28] MEDS: LISINOPRIL 20 MG TAB PO SCH (08:45)
[2017-10-28] MEDS: ATENOLOL 25 MG TAB PO SCH (08:45)
[2017-10-28] MEDS: FUROSEMIDE 20 MG TAB PO SCH (08:45)
[2017-10-28] MEDS: ACETAMINOPHEN TAB 325 MG TAB PO PRN ×2 (08:48→15:02)
[2017-10-28] MEDS ORDERED: PANTOPRAZOLE 40 MG/10 ML VIAL IV SCH (09:00)
[2017-10-28] MEDS ORDERED: VANCOMYCIN IV PER PHARMACY 1 EACH MISC MISCELLANE PRN (15:18)
[2017-10-28] MEDS ORDERED: LORazepam 0.5 MG TAB PO PRN (15:20)
[2017-10-28] MEDS ORDERED: MELATONIN 3 MG TABLET PO PRN (15:20)
[2017-10-28] MEDS ORDERED: CALCIUM CARBONATE 500 MG CHEWABLE PO PRN (15:20)
[2017-10-28] MEDS: ENOXAPARIN 40 MG/0.4 ML SYRINGE SQ SCH (15:52)
[2017-10-28] MEDS ORDERED: VANCOMYCIN 1,250 MG in SODIUM CHLORIDE 0.9% 250 ML IVPB ONE (16:00)
[2017-10-28] MEDS: NAPROXEN 250 MG TAB PO SCH ×2 (16:07→21:36)
--- NOTE | 2017-10-28 16:41 | HP ---
HISTORY AND PHYSICAL DATE OF ADMISSION: 10/28/17 PRESENT COMPLAINT: Left leg painful, swollen, red. HISTORY OF PRESENTING COMPLAINT: This is a pleasant 87-year-old patient of Dr. Dereck Mays. The patient's chronic stable medical conditions include hypertension, diverticulosis, osteoarthritis, gastritis. The patient went to the local salon to get her nails clipped and they also told her that she has a callus on the plantar surface and took care of that too. This was about 2 weeks ago. The patient for one week noticed increased redness in the left lower extremity going up to the knee including fever, chills. The patient even thought her heating was not working well and hence patient came in for the same. Feeling not well, tired, run down. The patient did see her family doctor for the same. Was prescribed Bactrim on Saturday and she took some of the antibiotics. As she was feeling worse, she decided to come in. REVIEW OF SYSTEMS: Constitutional: Tired, chills. HEENT: Decreased hearing. Respiratory none. Cardiovascular none. Gastrointestinal none. Genitourinary none. Musculoskeletal: Arthritic pain in many joints. Dermatological as above. Hematologic, lymphatic none. Psychiatry none. Neurological none. PAST MEDICAL HISTORY: Hypertension, diverticulosis, osteoarthritis, hard of hearing, chronic insomnia. PAST SURGICAL HISTORY: Appendectomy, cholecystectomy, hernia repair, hysterectomy, lesion removed from the calf, right mastectomy, surgery for incarcerated spigelian hernia repair with mesh. HOME MEDICATIONS: 1. Bactrim DS 1 tablet p.o. b.i.d. 2. [place] 1-2 tablets q.4 p.r.n. 3. Lasix 20 mg p.o. daily. 4. Vasotec 20 mg p.o. daily. 5. Tenormin 25 mg p.o. daily. ALLERGIES: TO ADHESIVE TAPE. PHYSICAL EXAMINATION: Afebrile, pulse 53, respirations 16, blood pressure 147/72, pulse ox 99% on room air. GENERAL APPEARANCE: Average build, lying in bed, awake. Eyes pupils equal. Conjunctivae are normal. HEENT external appearance of nose and ears normal. Decreased hearing. Superficial blisters on the upper lip. Neck JVD not raised. Mass not palpable. Respiratory effort normal. Lungs fair entry. Cardiovascular 1st and second sounds normal. No edema. ABDOMEN: Soft, nontender. Liver and spleen not palpable. Lymphatics: No lymph nodes palpable in the neck and axilla. Psychiatry: Alert and oriented times three. Mood and affect normal. Musculoskeletal: Evidence of severe arthritis especially in the hands and knees. Dermatological: There is redness of the left lower extremity from below the knee down to the foot. Some tenderness. Slight swelling. SOCIAL HISTORY: Patient does not smoke or drink alcohol. . FAMILY HISTORY: Reviewed, noncontributory to presentation. ASSESSMENT: 1. Acute left lower extremity cellulitis having failed outpatient treatment. No evidence of deep vein thrombosis. 2. Primary osteoarthritis of multiple joints including the hands and knees. 3. Chronic insomnia idiopathic. 4. Chronic diverticulosis. 5. Essential hypertension. 6. Hard of hearing, not otherwise specified. PLAN: Plan start the patient on vancomycin. Also use Silvadene cream and use Kerlix and Reza wrap. Home medications are to be resumed. For anti-inflammatory effect, we will use NSAIDs and Lovenox for DVT prophylaxis. Care was discussed with the patient. Questions were answered. Copy to Dr. Mays. MMALEXANDER / STEFANO: [id number] /
[2017-10-29] MEDS: SODIUM CHLORIDE 0.9% 1,000 ML IV SCH ×3 (05:48→23:35)
[2017-10-29] MEDS: VANCOMYCIN 1,250 MG in SODIUM CHLORIDE 0.9% 250 ML IVPB SCH ×2 (05:49→23:30)
[2017-10-29] MEDS: PANTOPRAZOLE 40 MG TABLET PO SCH (08:04)
[2017-10-29] MEDS: FUROSEMIDE 20 MG TAB PO SCH (08:04)
[2017-10-29] MEDS: ATENOLOL 25 MG TAB PO SCH (08:04)
[2017-10-29] MEDS: ENOXAPARIN 40 MG/0.4 ML SYRINGE SQ SCH (08:04)
[2017-10-29] MEDS: NAPROXEN 250 MG TAB PO SCH ×2 (08:05→19:51)
[2017-10-29] MEDS: LISINOPRIL 20 MG TAB PO SCH (08:05)
[2017-10-29 08:23] LABS: Anion Gap 10 mmol/L; Blood Urea Nitrogen 13 mg/dL (7-17); Carbon Dioxide 22 mmol/L (22-30); Chloride 110 mmol/L (98-107); Glucose 89 mg/dL (74-99); Potassium 4.3 mmol/L (3.5-5.1); Sodium 142 mmol/L (137-145)
[2017-10-29 08:26] LABS: Basophils % (A) 1 %; Eosinophils # (A) 0.3 k/uL (0-0.7); Eosinophils % (A) 5 %; HCT 30.5 % (34.0-46.0); Lymphocytes # (A) 1.1 k/uL (1.0-4.8); Lymphocytes % (A) 16 %; MCH 27.4 pg (25.0-35.0); MCHC 31.5 g/dL (31.0-37.0); Mean Platelet Volume 7.4; Monocytes # (A) 0.5 k/uL (0-1.0); Monocytes % (A) 8 %; Neutrophils # (A) 4.6 k/uL (1.3-7.7); Neutrophils % (A) 68 %; Platelet Count 241 k/uL (150-450); RDW 13.6 % (11.5-15.5); WBC 6.8 k/uL (3.8-10.6)
[2017-10-29 08:32] LABS: HGB 9.6 gm/dL (11.4-16.0)
[2017-10-29] MEDS ORDERED: MORPHINE ORAL SOLN 10 MG/5 ML CUP PO PRN (09:37)
--- NOTE | 2017-10-29 15:01 | PN ---
PROGRESS NOTE DATE OF SERVICE: 10/29/17. PRESENTING COMPLAINT: Left leg painful, red. INTERVAL HISTORY: This patient admitted with acute left lower extremity cellulitis, started on started on vancomycin and Silvadene cream. Redness and pain slightly to come down. Patient feeling better, tolerating a diet. No fever. REVIEW OF SYSTEMS: Done for constitutional, cardiovascular, GI, pulmonary; relevant findings as above. CURRENT MEDICATIONS: Reviewed that include IV vancomycin. PHYSICAL EXAMINATION: Temperature 97.2 pulse 58, respiration 16, blood pressure 140/76, pulse ox 97% on room air. GENERAL APPEARANCE: Lying in bed comfortable. EYES: Pupils equal. Conjunctivae normal. HEENT: External appearance of nose and ears normal. Oral cavity normal. NECK: JVD not raised. Mass not palpable. RESPIRATORY: Effort, lungs are clear. CARDIOVASCULAR: First and second sounds, minimal edema. ABDOMEN: Soft, nontender. Liver and spleen not palpable. EXTREMITIES: Left lower extremity redness is going down. Decreased tenderness from below the knee up to the foot. INVESTIGATIONS: White count 6.8, hemoglobin 9.6, potassium 4.3. Blood cultures negative. ASSESSMENT: 1. Acute left lower extremity cellulitis having failed outpatient treatment with clinical improvement. 2. Primary osteoarthritis of multiple joints including hands and knees. 3. Chronic insomnia idiopathic. 4. Chronic diverticulosis. 5. Essential hypertension. 6. Hard of hearing, not otherwise specified. PLAN: Continue patient on vancomycin, Silvadene dressing with Kerlix and Reza wrap. Care was discussed with the patient. Overall doing better. Encouraged to be out of bed. MMODL / IJN: [id number] /
[2017-10-30] MEDS: SODIUM CHLORIDE 0.9% 1,000 ML IV SCH ×3 (04:37→23:06)
[2017-10-30] MEDS: LISINOPRIL 20 MG TAB PO SCH (08:04)
[2017-10-30] MEDS: ENOXAPARIN 40 MG/0.4 ML SYRINGE SQ SCH (08:05)
[2017-10-30] MEDS: NAPROXEN 250 MG TAB PO SCH ×2 (08:05→22:35)
[2017-10-30] MEDS: ATENOLOL 25 MG TAB PO SCH (08:05)
[2017-10-30] MEDS: FUROSEMIDE 20 MG TAB PO SCH (08:05)
[2017-10-30] MEDS: PANTOPRAZOLE 40 MG TABLET PO SCH (08:05)
[2017-10-30 08:22] LABS: Basophils % (A) 1 %; Eosinophils # (A) 0.3 k/uL (0-0.7); Eosinophils % (A) 4 %; HGB 10.2 gm/dL (11.4-16.0); Lymphocytes # (A) 1.1 k/uL (1.0-4.8); Lymphocytes % (A) 16 %; MCH 27.1 pg (25.0-35.0); MCV 87.4 fL (80.0-100.0); Mean Platelet Volume 7.5; Monocytes # (A) 0.4 k/uL (0-1.0); Monocytes % (A) 6 %; Neutrophils # (A) 4.8 k/uL (1.3-7.7); Neutrophils % (A) 71 %; Platelet Count 243 k/uL (150-450); RBC 3.78 m/uL (3.80-5.40); RDW 14.1 % (11.5-15.5); WBC 6.7 k/uL (3.8-10.6)
[2017-10-30 08:32] LABS: Anion Gap 10 mmol/L; Blood Urea Nitrogen 11 mg/dL (7-17); Calcium 8.5 mg/dL (8.4-10.2); Carbon Dioxide 24 mmol/L (22-30); Chloride 109 mmol/L (98-107); Glucose 87 mg/dL (74-99); Potassium 4.4 mmol/L (3.5-5.1); Sodium 143 mmol/L (137-145)
[2017-10-30] MEDS: VANCOMYCIN 1,250 MG in SODIUM CHLORIDE 0.9% 250 ML IVPB SCH (15:08)
--- NOTE | 2017-10-30 18:56 | PN ---
PROGRESS NOTE DATE OF SERVICE: 10/30/2017 PRESENTING COMPLAINT: Left leg painful, red. INTERVAL HISTORY: This patient has acute left lower extremity cellulitis and has been on Vancomycin and Silvadene cream. Redness and pain and swelling continue to improve slowly. Tolerating a diet. Bowels are okay. No new issues. REVIEW OF SYSTEMS: Done for constitutional, cardiovascular, GI, pulmonary, dermatological; relevant findings as above. CURRENT MEDICATIONS: Reviewed. They include IV vancomycin and Silvadene. PHYSICAL EXAMINATION: Afebrile. Pulse 78, respiration 16, blood pressure 149/80, pulse ox 92% on room air. GENERAL APPEARANCE: Lying in bed, comfortable. EYES: Pupils equal. Conjunctivae normal. HEENT: External appearance of nose and ears normal. Oral cavity normal. NECK: JVD not raised. Mass not palpable. RESPIRATORY: Effort normal. Lungs are clear. CARDIOVASCULAR: First and second sounds normal. No edema. ABDOMEN: Soft, nontender. Liver and spleen not palpable. EXTREMITIES: Decreased redness, tenderness in the left lower extremity. INVESTIGATIONS: White count 6.7, potassium 4.4. ASSESSMENT: 1. Acute left lower extremity cellulitis having failed outpatient treatment with clinical improvement slowly. 2. Primary osteoarthritis in multiple joints, including hands and knees. 3. Chronic insomnia, idiopathic. 4. Chronic diverticulosis. 5. Essential hypertension. 6. Hard of hearing not otherwise specified. PLAN: Continue with current medication and treatment plan. Care was discussed with the patient. MMODL / IJN: [id number] /
[2017-10-31] MEDS: SODIUM CHLORIDE 0.9% 1,000 ML IV SCH (04:52)
[2017-10-31] MEDS ORDERED: VANCOMYCIN TROUGH DUE 1 EACH MISC MISCELLANE ONE (07:00)
[2017-10-31] MEDS: PANTOPRAZOLE 40 MG TABLET PO SCH (08:31)
[2017-10-31] MEDS: FUROSEMIDE 20 MG TAB PO SCH (08:32)
[2017-10-31] MEDS: ENOXAPARIN 40 MG/0.4 ML SYRINGE SQ SCH (08:32)
[2017-10-31] MEDS: ATENOLOL 25 MG TAB PO SCH (08:32)
[2017-10-31] MEDS: LISINOPRIL 20 MG TAB PO SCH (08:32)
[2017-10-31] MEDS: NAPROXEN 250 MG TAB PO SCH ×2 (08:33→21:16)
[2017-10-31] MEDS: VANCOMYCIN 1,250 MG in SODIUM CHLORIDE 0.9% 250 ML IVPB SCH (08:40)
[2017-10-31 08:57] LABS: Anion Gap 13 mmol/L; Blood Urea Nitrogen 9 mg/dL (7-17); Calcium 8.7 mg/dL (8.4-10.2); Carbon Dioxide 24 mmol/L (22-30); Chloride 107 mmol/L (98-107); Glucose 128 mg/dL (74-99); Sodium 144 mmol/L (137-145)
[2017-10-31] MEDS: METOPROLOL TARTRATE 50 MG TAB PO SCH (23:58)
--- NOTE | 2017-11-01 07:03 | PN ---
PROGRESS NOTE DATE OF SERVICE: 10/31/2017 PRESENTING COMPLAINT: Left leg painful, red. INTERVAL HISTORY: Patient with acute left lower extremity cellulitis, has been on vancomycin, Silvadene cream. Continues to improve. Some pain when she walks on it, but overall doing much better she states. Tolerating a diet, bowels are good. REVIEW OF SYSTEMS: Done for constitutional, cardiovascular, GI, pulmonary, dermatological; relevant findings as above. CURRENT MEDICATIONS: Include IV vancomycin and Silvadene. PHYSICAL EXAMINATION: Temperature 97.8, pulse 68, respiratory rate 18, blood pressure 118/69, pulse ox 100% on room air. Repeat blood pressure asked. GENERAL APPEARANCE: Lying in bed comfortable. EYES: Pupils equal, conjunctivae normal. HEENT: External appearance of nose and ears normal, oral cavity normal. NECK: JVD not raised. Mass not palpable. Respiratory effort normal. Lungs are clear. CARDIOVASCULAR: First and second sounds are normal, no edema. ABDOMEN: Soft, nontender. Liver and spleen not palpable. EXTREMITIES: Dressing over the left lower extremity. INVESTIGATIONS: BUN and creatinine are normal. ASSESSMENT: 1. Acute left lower extremity cellulitis having failed outpatient treatment, clinically improving. 2. Primary osteoarthritis in multiple joints including hands and knees. 3. Chronic insomnia, idiopathic. 4. Chronic diverticulosis. 5. Essential hypertension. 6. Hard of hearing, not otherwise specified. PLAN: Care was discussed with the patient. Encouraged the patient to ambulate today. If she does well, will let the patient go home tomorrow. MMODL / IJN: [id number] /
[2017-11-01 07:16] VITALS: BP 134/72; PULSE 50; RESP 18; TEMP 96.8
[2017-11-01] MEDS: PANTOPRAZOLE 40 MG TABLET PO SCH (07:58)
[2017-11-01] MEDS: ENOXAPARIN 40 MG/0.4 ML SYRINGE SQ SCH (07:58)
[2017-11-01] MEDS: NAPROXEN 250 MG TAB PO SCH (07:59)
[2017-11-01] MEDS: METOPROLOL TARTRATE 50 MG TAB PO SCH (07:59)
[2017-11-01] MEDS: LISINOPRIL 20 MG TAB PO SCH (07:59)
[2017-11-01 08:55] LABS: Anion Gap 12 mmol/L; Blood Urea Nitrogen 9 mg/dL (7-17); Calcium 8.6 mg/dL (8.4-10.2); Carbon Dioxide 26 mmol/L (22-30); Chloride 105 mmol/L (98-107); Glucose 105 mg/dL (74-99); Potassium 4.1 mmol/L (3.5-5.1); Sodium 143 mmol/L (137-145)
[2017-11-01] MEDS ORDERED: DOXYCYCLINE 50 MG CAP PO SCH (09:00)
[2017-11-01] MEDS ORDERED: CHLORTHALIDONE 25 MG TAB PO SCH (09:00)
--- NOTE | 2017-11-01 20:07 | DS ---
DISCHARGE SUMMARY DATE OF ADMISSION: 10/28/2017 DATE OF DISCHARGE: 11/01/2017 FINAL DIAGNOSES: 1. Acute left lower extremity cellulitis having failed outpatient treatment. 2. Primary osteoarthritis in multiple joints including the hands and knees. 3. Chronic insomnia idiopathic. 4. Chronic diverticulosis, colonic. 5. Essential hypertension. 6. Hard of hearing. Not otherwise specified. HOSPITAL COURSE: This very pleasant lady presented with acute left lower extremity cellulitis. This may be presented brought by a getting a corn removed by one of the beauticians in a salon. The patient is treated with IV vancomycin and topical Silvadene to which she responded really well including Kerlix and Reza wrap. At the time of discharge, patient doing much better. On examination, lungs are clear. Cardiovascular first and second sounds normal. Redness of the left leg have greatly improved. DISCHARGE MEDICATIONS: 1. Vasotec 20 mg a day. 2. Oxford 5 1-2 tablets q.4 p.r.n. 3. Chlorthalidone 25 mg p.o. daily, new medication. 4. Doxycycline 100 mg p.o. b.i.d., 14 capsules. 5. Lopressor 50 mg p.o. b.i.d. 6. Naproxen 250 mg b.i.d., 14 tablets. 7. Silvadene topical b.i.d. with Kerlix and Reza wrap. LABS: BMP, CBC in three days. FOLLOWUP: Follow up with Dr. Dereck Mays on November 05, 2017. Discussion and discharge planning more than [address] Mays. OLIVERIO / STEFANO: [id number] /
== END 2017-11-01 15:40 | disposition home or self-care (01) | DRG 603 ==
LOC: EC 00:12 → 5MS5E 02:27
PROVIDERS: ADMIT Hospitalist; ATTEND Hospitalist
DX: L03.116 Cellulitis of left lower limb (principal); E78.5 Hyperlipidemia, unspecified; F51.04 Psychophysiologic insomnia; H91.90 Unspecified hearing loss, unspecified ear; I10 Essential (primary) hypertension; K29.70 Gastritis, unspecified, without bleeding; K57.90 Diverticulosis of intestine, part unspecified, without perforation or abscess without bleeding; M15.9 Polyosteoarthritis, unspecified; Z79.899 Other long term (current) drug therapy; Z90.11 Acquired absence of right breast and nipple; Z90.710 Acquired absence of both cervix and uterus; Z79.2 Long term (current) use of antibiotics; Z79.891 Long term (current) use of opiate analgesic; Z88.8 Allergy status to other drugs, medicaments and biological substances
CPT/HCPCS: 36415; 80048; 80053; 80202; 81003; 83605; 85025; 85610; 85730; 87040; 96361; 96365; 99285

== ENCOUNTER 2019-02-26 16:45 | Emergency (ER) | payer MEDICARE ==
[2019-02-26 16:52] VITALS: TEMP 97.6
[2019-02-26 18:14] LABS: Basophils % (A) 1 %; Eosinophils # (A) 0.3 k/uL (0-0.7); Eosinophils % (A) 5 %; HCT 35.7 % (34.0-46.0); HGB 11.5 gm/dL (11.4-16.0); Lymphocytes # (A) 1.5 k/uL (1.0-4.8); Lymphocytes % (A) 22 %; MCH 27.8 pg (25.0-35.0); MCHC 32.3 g/dL (31.0-37.0); Mean Platelet Volume 7.1; Monocytes # (A) 0.6 k/uL (0-1.0); Monocytes % (A) 10 %; Neutrophils # (A) 3.9 k/uL (1.3-7.7); Neutrophils % (A) 59 %; Platelet Count 198 k/uL (150-450); RBC 4.15 m/uL (3.80-5.40); WBC 6.6 k/uL (3.8-10.6)
[2019-02-26 18:23] LABS: Albumin 4.1 g/dL (3.5-5.0); Calcium 9.1 mg/dL (8.4-10.2); Magnesium 2.2 mg/dL (1.6-2.3); Potassium 3.6 mmol/L (3.5-5.1); Total Bilirubin 0.6 mg/dL (0.2-1.3); Total Protein 6.9 g/dL (6.3-8.2)
--- NOTE | 2019-02-26 18:24 | XR ---
EXAMINATION TYPE: XR chest 2V DATE OF EXAM: 02/26/2019 COMPARISON: 11/28/2012 HISTORY: Right axilla pain for 2 days. Chest pain TECHNIQUE: Frontal and lateral views of the chest are obtained. FINDINGS: There is coarse interstitial density in the lungs. Thoracic aorta is atheromatous. There i s no definite pleural effusion. Heart is probably enlarged. IMPRESSION: Coarse interstitial pulmonary infiltrates probably related to pulmonary fibrosis. Heart failure not entirely excluded. Pulmonary abnormality is a significant change compared to old exam.
[2019-02-26 18:31] LABS: INR 0.9 (<1.2); Partial Thromboplastin Time 24.1 sec (22.0-30.0); Prothrombin Time 9.8 sec (9.0-12.0)
--- NOTE | 2019-02-26 18:58 | US ---
EXAMINATION TYPE: US axilla RT DATE OF EXAM: 02/26/2019 COMPARISON: NONE CLINICAL HISTORY: Pain. Pain right axilla x 3 days. Hx right mastectomy 2009. Hypoechoic area with vascularity seen right axilla measurin.1 x 1.0 x 0.5 cm. IMPRESSION: Oval-shaped hypoechoic area could be axillary lymph node with normal size.
[2019-02-26] MEDS ORDERED: ACETAMINOPHEN TAB 500 MG TAB PO STA (19:43)
--- NOTE | 2019-02-26 19:43 | ED ---
General Adult HPI - General Chief complaint: Extremity Problem,Nontraumatic Stated complaint: Armpit pain Time Seen by Provider: 02/26/19 16:59 Source: patient, family, RN notes reviewed, old records reviewed Mode of arrival: wheelchair Limitations: no limitations - History of Present Illness Initial comments: 88-year-old female patient past medical history of breast cancer, status post right mastectomy in 2009% ED with right axilla pain. Patient was having ongoing for approximately 3 days. Patient has poor that she was doing some vigorous: Work including using a hollow and prior days. Patient is that she does have a sharp pain in her right axillary region from time to time. Denies any shortness of breath or anterior chest pain. Denies any cough or congestion. Denies any fevers or chills. Denies any other complaints. Systemic: Pt denies fatigue, fever/chills, rash. Pt denies weakness, night sweats, weight loss. Neuro: Pt denies headache, visual disturbances, syncope or pre-syncope. HEENT: Pt denies ocular discharge or irritation, otalgia, rhinorrhea, pharyngitis or notable lymphadenopathy. Cardiopulmonary: Pt denies chest pain, SOB, heart palpitations, dyspnea on exertion. Abdominal/GI: Pt denies abdominal pain, n/v/d. : Pt denies dysuria, burning w/ urination, frequency/urgency. Denies new onset urinary or bowel incontinence. MSK: Pt denies loss of strength or function in extremities. Neuro: Pt denies new onset weakness, paresthesias. - Related Data Home Medications Medication Instructions Recorded Confirmed Enalapril [Vasotec] 20 mg PO DAILY 10/14/16 10/28/17 Hydrocodone/Acetaminophen [Canby 1 - 2 tab PO Q4HR PRN 10/28/17 10/28/17 5-325] Previous Rx's Medication Instructions Recorded Chlorthalidone [Hygroton] 25 mg PO DAILY #30 tab 11/01/17 Doxycycline [Vibramycin] 100 mg PO BID #14 cap 11/01/17 Metoprolol Tartrate [Lopressor] 50 mg PO BID #60 tab 11/01/17 Naproxen [Naprosyn] 250 mg PO BID #14 tab 11/01/17 SILVER sulfADIAZINE CREAM 1 applic TOPICAL BID applic 11/01/17 [Silvadene Cream] Acetaminophen Tab [Tylenol Tab] 500 mg PO Q8HR PRN #30 tablet 02/26/19 Allergies Allergy/AdvReac Type Severity Reaction Status Date / Time adhesive tape Allergy Rash/Hives Verified 02/26/19 16:48 Review of Systems ROS Statement: Those systems with pertinent positive or pertinent negative responses have been documented in the HPI. ROS Other: All systems not noted in ROS Statement are negative. Past Medical History Past Medical History: Cancer, Hyperlipidemia, Hypertension Additional Past Medical History / Comment(s): diverticulosis History of Any Multi-Drug Resistant Organisms: None Reported Past Surgical History: Appendectomy, Cholecystectomy, Hernia Repair, Hysterectom y Additional Past Surgical History / Comment(s): abdomen surgery, right mastectomy 2008, lesion removed from calf Past Psychological History: No Psychological Hx Reported Smoking Status: Never smoker Past Alcohol Use History: None Reported Past Drug Use History: None Reported - Past Family History Mother Family Medical History: Cancer General Exam - General Exam Comments Initial Comments: Constitutional: NAD, AOX3, Pt has pleasant affect. HEENT: NC/AT, trachea midline, neck supple, no lymphadenopathy. Posterior pharynx non erythematous, without exudates. External ears appear normal, without discharge. Mucous membranes moist. Eyes PERRLA, EOM intact. There is no scleral icterus. No pallor noted. Cardiopulmonary: RRR, no murmurs, rubs or gallops, no JVD noted. Lungs CTAB in anterior and posterior lagunas. No peripheral edema. Abdominal exam: Abdomen soft and non-distended. Abdomen non-tender to palpation in all 4 quadrants. Bowel sounds active in LLQ. No hepatosplenomegaly. No ecchymosis Neuro: CN II-XII grossly intact. No nuchal rigidity. No raccon eyes, no silver sign, no hemotympanum. No cervical spinal tenderness. MSK: Right axillary region examined, mildly tender lymph node noted, no skin changes, no erythema. No posterior calf tenderness bilaterally, homans sign negative bilaterally. Posterior tibialis and radial pulse +2 bilaterally. Sensation intact in upper and lower extremities. Full active ROM in upper and lower extremities, 5/5 stregnth. Limitations: no limitations Course Vital Signs 02/26/19 16:48 Temperature 97.6 F Pulse Rate 61 Respiratory 16 Rate Blood Pressure 184/80 O2 Sat by Pulse 98 Oximetry Medical Decision Making - Medical Decision Making 88-year-old female patient past medical history of breast cancer, status post ri ght mastectomy in 2009% ED with right axilla pain. Patient was having ongoing for approximately 3 days. Patient has poor that she was doing some vigorous: Work including using a hollow and prior days. Patient is that she does have a sharp pain in her right axillary region from time to time. Denies any shortness of breath or anterior chest pain. Denies any cough or congestion. Denies any fevers or chills. Denies any other complaints. Patient vital signs stable, afebrile. Will monitor at home. Physical exam displayed Right axillary region examined, mildly tender lymph node noted, no skin changes, no erythema. Laboratory investigations revealed nonpresence of CBC, CMP. Correlation studies non-impressive. Troponin negative. BNP 243. EKG I think acute ischemia. Ultrasound right axilla displayed oval-shaped hypoechoic area which could be axillary lymph node with normal size. Chest x-ray displayed coarse interstitial pulmonary infiltrates probably related to pulmonary fibrosis, heart failure not entirely excluded. In conjunction with BNP this is unlikely to be heart failur e. Patient not have any respiratory complaints. Patient pain is likely muscular skeletal in nature. Discussed all these findings in depth with family, offered family CAT scan which they declined. Plain films that we cannot 100% rule out a recurrence of cancer without a CAT scan, they verbalized understanding. 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 Case discussed in depth with Dr. Mccollum. - Lab Data Result diagrams: 02/26/19 18:03 02/26/19 18:03 Lab Results 02/26/19 02/26/19 02/26/19 Range/Units 18:03 18:03 18:03 WBC 6.6 (3.8-10.6) k/uL RBC 4.15 (3.80-5.40) m/uL Hgb 11.5 (11.4-16.0) gm/dL Hct 35.7 (34.0-46.0) % MCV 86.0 (80.0-100.0) fL MCH 27.8 (25.0-35.0) pg MCHC 32.3 (31.0-37.0) g/dL RDW 14.0 (11.5-15.5) % Plt Count 198 (150-450) k/uL Neutrophils % 59 % Lymphocytes % 22 % Monocytes % 10 % Eosinophils % 5 % Basophils % 1 % Neutrophils # 3.9 (1.3-7.7) k/uL Lymphocytes # 1.5 (1.0-4.8) k/uL Monocytes # 0.6 (0-1.0) k/uL Eosinophils # 0.3 (0-0.7) k/uL Basophils # 0.0 (0-0.2) k/uL PT 9.8 (9.0-12.0) sec INR 0.9 (<1.2) APTT 24.1 (22.0-30.0) sec Sodium 141 (137-145) mmol/L Potassium 3.6 (3.5-5.1) mmol/L Chloride 102 (98-107) mmol/L Carbon Dioxide 32 H (22-30) mmol/L Anion Gap 7 mmol/L BUN 25 H (7-17) mg/dL Creatinine 0.87 (0.52-1.04) mg/dL Est GFR (CKD-EPI)AfAm 68 (>60 ml/min/1.73 sqM) Est GFR (CKD-EPI)NonAf 59 (>60 ml/min/1.73 sqM) Glucose 98 (74-99) mg/dL Calcium 9.1 (8.4-10.2) mg/dL Magnesium 2.2 (1.6-2.3) mg/dL Total Bilirubin 0.6 (0.2-1.3) mg/dL AST 28 (14-36) U/L ALT 13 (9-52) U/L Alkaline Phosphatase 62 (38-126) U/L Troponin I (0.000-0.034) ng/mL NT-Pro-B Natriuret Pep pg/mL Total Protein 6.9 (6.3-8.2) g/dL Albumin 4.1 (3.5-5.0) g/dL 02/26/19 02/26/19 Range/Units 18:03 18:03 WBC (3.8-10.6) k/uL RBC (3.80-5.40) m/uL Hgb (11.4-16.0) gm/dL Hct (34.0-46.0) % MCV (80.0-100.0) fL MCH (25.0-35.0) pg MCHC (31.0-37.0) g/dL RDW (11.5-15.5) % Plt Count (150-450) k/uL Neutrophils % % Lymphocytes % % Monocytes % % Eosinophils % % Basophils % % Neutrophils # (1.3-7.7) k/uL Lymphocytes # (1.0-4.8) k/uL Monocytes # (0-1.0) k/uL Eosinophils # (0-0.7) k/uL Basophils # (0-0.2) k/uL PT (9.0-12.0) sec INR (<1.2) APTT (22.0-30.0) sec Sodium (137-145) mmol/L Potassium (3.5-5.1) mmol/L Chloride (98-107) mmol/L Carbon Dioxide (22-30) mmol/L Anion Gap mmol/L BUN (7-17) mg/dL Creatinine (0.52-1.04) mg/dL Est GFR (CKD-EPI)AfAm (>60 ml/min/1.73 sqM) Est GFR (CKD-EPI)NonAf (>60 ml/min/1.73 sqM) Glucose (74-99) mg/dL Calcium (8.4-10.2) mg/dL Magnesium (1.6-2.3) mg/dL Total Bilirubin (0.2-1.3) mg/dL AST (14-36) U/L ALT (9-52) U/L Alkaline Phosphatase (38-126) U/L Troponin I <0.012 (0.000-0.034) ng/mL NT-Pro-B Natriuret Pep 243 pg/mL Total Protein (6.3-8.2) g/dL Albumin (3.5-5.0) g/dL Disposition Clinical Impression: Pain in right axilla Disposition: HOME SELF-CARE Condition: Stable Instructions (If sedation given, give patient instructions): Musculoskeletal Pain (ED) Additional Instructions: Patient to adhere to previously discussed treatment plan and will take medication(s) as directed. Patient to follow up with PCP in 1-2 days. Patient to return to ED if symptoms do not improve. Follow-up with primary care provider, foam rubber mixer, oncologist tomorrow. Return to ER if condition worsens. Prescriptions: Acetaminophen Tab [Tylenol Tab] 500 mg PO Q8HR PRN #30 tablet PRN Reason: Pain Is patient prescribed a controlled substance at d/c from ED?: No Referrals: Dereck Mays MD [Primary Care Provider] - 1-2 days Colleen Mathis MD [STAFF PHYSICIAN] - 1-2 days Olivia Santos DO [Doctor of Osteopathic Medicine] - 1-2 days
[2019-02-26 19:45] VITALS: BP 163/79; PULSE 56; RESP 18
--- NOTE | 2019-02-26 19:51 | ED ---
Medical Decision Making - Lab Data Result diagrams: 02/26/19 18:03 02/26/19 18:03 Lab Results 02/26/19 02/26/19 02/26/19 Range/Units 18:03 18:03 18:03 WBC 6.6 (3.8-10.6) k/uL RBC 4.15 (3.80-5.40) m/uL Hgb 11.5 (11.4-16.0) gm/dL Hct 35.7 (34.0-46.0) % MCV 86.0 (80.0-100.0) fL MCH 27.8 (25.0-35.0) pg MCHC 32.3 (31.0-37.0) g/dL RDW 14.0 (11.5-15.5) % Plt Count 198 (150-450) k/uL Neutrophils % 59 % Lymphocytes % 22 % Monocytes % 10 % Eosinophils % 5 % Basophils % 1 % Neutrophils # 3.9 (1.3-7.7) k/uL Lymphocytes # 1.5 (1.0-4.8) k/uL Monocytes # 0.6 (0-1.0) k/uL Eosinophils # 0.3 (0-0.7) k/uL Basophils # 0.0 (0-0.2) k/uL PT 9.8 (9.0-12.0) sec INR 0.9 (<1.2) APTT 24.1 (22.0-30.0) sec Sodium 141 (137-145) mmol/L Potassium 3.6 (3.5-5.1) mmol/L Chloride 102 (98-107) mmol/L Carbon Dioxide 32 H (22-30) mmol/L Anion Gap 7 mmol/L BUN 25 H (7-17) mg/dL Creatinine 0.87 (0.52-1.04) mg/dL Est GFR (CKD-EPI)AfAm 68 (>60 ml/min/1.73 sqM) Est GFR (CKD-EPI)NonAf 59 (>60 ml/min/1.73 sqM) Glucose 98 (74-99) mg/dL Calcium 9.1 (8.4-10.2) mg/dL Magnesium 2.2 (1.6-2.3) mg/dL Total Bilirubin 0.6 (0.2-1.3) mg/dL AST 28 (14-36) U/L ALT 13 (9-52) U/L Alkaline Phosphatase 62 (38-126) U/L Troponin I (0.000-0.034) ng/mL NT-Pro-B Natriuret Pep pg/mL Total Protein 6.9 (6.3-8.2) g/dL Albumin 4.1 (3.5-5.0) g/dL 02/26/19 02/26/19 Range/Units 18:03 18:03 WBC (3.8-10.6) k/uL RBC (3.80-5.40) m/uL Hgb (11.4-16.0) gm/dL Hct (34.0-46.0) % MCV (80.0-100.0) fL MCH (25.0-35.0) pg MCHC (31.0-37.0) g/dL RDW (11.5-15.5) % Plt Count (150-450) k/uL Neutrophils % % Lymphocytes % % Monocytes % % Eosinophils % % Basophils % % Neutrophils # (1.3-7.7) k/uL Lymphocytes # (1.0-4.8) k/uL Monocytes # (0-1.0) k/uL Eosinophils # (0-0.7) k/uL Basophils # (0-0.2) k/uL PT (9.0-12.0) sec INR (<1.2) APTT (22.0-30.0) sec Sodium (137-145) mmol/L Potassium (3.5-5.1) mmol/L Chloride (98-107) mmol/L Carbon Dioxide (22-30) mmol/L Anion Gap mmol/L BUN (7-17) mg/dL Creatinine (0.52-1.04) mg/dL Est GFR (CKD-EPI)AfAm (>60 ml/min/1.73 sqM) Est GFR (CKD-EPI)NonAf (>60 ml/min/1.73 sqM) Glucose (74-99) mg/dL Calcium (8.4-10.2) mg/dL Magnesium (1.6-2.3) mg/dL Total Bilirubin (0.2-1.3) mg/dL AST (14-36) U/L ALT (9-52) U/L Alkaline Phosphatase (38-126) U/L Troponin I <0.012 (0.000-0.034) ng/mL NT-Pro-B Natriuret Pep 243 pg/mL Total Protein (6.3-8.2) g/dL Albumin (3.5-5.0) g/dL - EKG Data -: EKG Interpreted by Me (and dr kinsey) EKG Comments: Ventricular rate 56, when necessary for 192, QRS 98, QT/QTc 436 S4 20. Sinus bradycardia, minimal voltage criteria for LVH, maybe normal variant. Portable an EKG, no concern for acute ischemia at this time. Disposition Clinical Impression: Pain in right axilla Disposition: HOME SELF-CARE Condition: Stable Instructions (If sedation given, give patient instructions): Musculoskeletal Pain (ED) Additional Instructions: Patient to adhere to previously discussed treatment plan and will take medication(s) as directed. Patient to follow up with PCP in 1-2 days. Patient to return to ED if symptoms do not improve. Follow-up with primary care provider, supervisor electric motor testing, oncologist tomorrow. Return to ER if condition worsens. Prescriptions: Acetaminophen Tab [Tylenol Tab] 500 mg PO Q8HR PRN #30 tablet PRN Reason: Pain Is patient prescribed a controlled substance at d/c from ED?: No Referrals: Olivia Santos DO [Doctor of Osteopathic Medicine] - 1-2 days Dereck Mays MD [Primary Care Provider] - 1-2 days Colleen Mathis MD [STAFF PHYSICIAN] - 1-2 days
== END 2019-02-26 19:57 | disposition home or self-care (01) ==
LOC: EC 16:45
DX: M79.621 Pain in right upper arm (principal); I10 Essential (primary) hypertension; Z85.3 Personal history of malignant neoplasm of breast; Z79.899 Other long term (current) drug therapy; Z91.048 Other nonmedicinal substance allergy status; Z90.11 Acquired absence of right breast and nipple; Z53.29 Procedure and treatment not carried out because of patient's decision for other reasons
CPT/HCPCS: 36415; 71046; 80053; 83735; 83880; 84484; 85025; 85610; 85730; 93005; 99284